=== PATIENT | female | born 1940 | race Caucasian/White ===

== ENCOUNTER → 2017-01-13 | Outpatient (CLI) | payer MEDICARE, BC, OTHER ==
[~2017-01-13] MED LIST: AMIT150T PO; HYDR25TAB PO; HYDR50TAB PO; LIDOCAINE 2% INJ 100 MG/5 ML SDV (FOR ANES.) As Ordered ONE; NABU500T PO; OMEP20CA3 PO; PERC5TAB12 PO; POTA10TA16 PO; PROPOFOL 500 MG/50 ML VIAL As Ordered ONE; VENL150C43 PO; WOME1TAB3 PO
[2017-01-13 11:20] LABS: MEAN CORPUSCULAR HEMOGLOBIN 33.2 pg (27.0-33.0); MEAN CORPUSCULAR HGB CONC 35.9 g/dl (32.0-36.5); MEAN CORPUSCULAR VOLUME 92.5 fl (80.0-96.0); RED CELL DISTRIBUTION WIDTH 11.9 % (11.5-14.5); WHITE BLOOD COUNT 4.6 K/mm3 (4.0-10.0)
[2017-01-13 11:36] LABS: INR 0.99
[2017-01-13 12:09] LABS: ALBUMIN 3.9 GM/DL (3.2-5.2); ALBUMIN/GLOBULIN RATIO 1.44 (1.00-1.93); ALKALINE PHOSPHATASE 78 U/L (45-117); ALT/SGPT 18 U/L (12-78); ANION GAP 7 MEQ/L (8-16); AST/SGOT 15 U/L (15-37); BILIRUBIN,TOTAL 0.4 MG/DL (0.2-1.0); BLOOD UREA NITROGEN 13 MG/DL (7-18); CALCIUM LEVEL 9.1 MG/DL (8.8-10.2); CARBON DIOXIDE LEVEL 30 MEQ/L (21-32); CHLORIDE LEVEL 107 MEQ/L (98-107); GLOMERULAR FILTRATION RATE > 60.0 (>39); GLUCOSE, FASTING 115 MG/DL (83-110); POTASSIUM SERUM 3.5 MEQ/L (3.5-5.1); SODIUM LEVEL 144 MEQ/L (136-145); TOTAL PROTEIN 6.6 GM/DL (6.4-8.2)
--- NOTE | 2017-01-13 12:38 | REP ---
CHEST X-RAY: Two views. HISTORY: Gastroesophageal reflux disease. Comparison chest x-ray June 23, 2012. FINDINGS: The lungs are well inflated and clear. The pleural angles are sharp. Heart size is normal. There is a zone of linear fibrosis overlying the heart on the lateral radiograph unchanged. The aorta is calcific and slightly tortuous. There is sclerosis and some flattening of the humeral head on the right side consistent with osteoarthritis. IMPRESSION: No active disease. Signed by Shimon Branham MD 01/13/2017 04:29 P
--- NOTE | 2017-01-13 21:44 | ECGEPIP ---
Stationary ECG Study [facility] Test Date: 2017-01-13 Pat Name: ARCHIE MARCUS Department: Room: - Gender: F Insulation Professional: [facility] : 1940 Requested By: Rich Kwon Order Number: [id number] Reading MD: Jese Sevilla Measurements Intervals [place] Rate: 57 P: 8 [place]: 172 QRS: -37 QRSD: 108 T: 24 QT: 453 QTc: 442 Interpretive Statements Sinus bradycardia Left axis deviation Nonspecific T wave abnormality Probable pulmonary disease Comparison tracing not on file Electronically Signed On 01-13-2017 21:44:38 EDT by Jese Sevilla
== END ==
LOC: M ADMPAT 10:03
PROVIDERS: ATTEND Orthopaedic Surgery
DX: Z01.818 Encounter for other preprocedural examination (principal); M19.011 Primary osteoarthritis, right shoulder; Z79.899 Other long term (current) drug therapy

== ENCOUNTER 2017-01-27 05:42 | Inpatient (IN) | payer MEDICARE, BC, OTHER ==
[2017-01-13 10:43] VITALS: BP 134/74
--- NOTE | 2017-01-21 11:54 | HPE ---
DATE OF ANTICIPATED ADMISSION: 01/27/2017 ATTENDING PHYSICIAN: Dr. Fuller CHIEF COMPLAINT: Right shoulder pain and stiffness. HISTORY: The patient is a pleasant 76-year-old female with progressively worsening right shoulder pain and stiffness. She has failed to improve with conservative measures. She has consented for an elective right total shoulder arthroplasty with Dr. Fuller. CHRONIC MEDICAL CONDITIONS: 1. Hypertension. 2. Gastroesophageal reflux disease (GERD). 3. Anxiety. CURRENT MEDICATIONS: - Mobic 7.5 mg daily - Effexor extended release 150 mg daily - hydrochlorothiazide 50 mg daily - omeprazole 20 mg daily - KlorCon 10 mEq daily PAST SURGICAL HISTORY: 1. Partial hysterectomy. 2. Foot and thumb surgery. SOCIAL HISTORY: The patient is a former smoker, quit in 1999. She denies alcohol use. The patient is and lives with . REVIEW OF SYSTEMS: The patient denies fevers, chills, nausea, vomiting or diarrhea. She denies chest pain, shortness of breath, cough, headaches or abdominal pain. She continues to have right shoulder pain with activities of daily living. PHYSICAL EXAMINATION: GENERAL: Patient is a well-nourished, well-developed female in no apparent distress. VITAL SIGNS: Blood pressure 118/72, heart rate 68, respirations 16, temperature 97.2, height 5 feet 7 inches, weight 169 pounds. NECK: Supple without lymphadenopathy. HEART: Regular rate and rhythm. LUNGS: Clear to auscultation bilaterally. ABDOMEN: Soft, nontender to palpation. Bowel sounds are present. MUSCULOSKELETAL: Right shoulder revealed no gross abnormalities. Her skin is intact. Shoulder is quite irritable on examination. Range of motion is limited secondary to pain. Strength seems normal. Radial pulse is palpable. Capillary refill is brisk. Sensation is intact. LABORATORY DATA: Chest x-ray with no active disease. EKG sinus bradycardia. Left axis deviation. Nonspecific T-wave abnormalities. Probably pulmonary disease. Urinalysis negative with urine culture revealing no growth of clinical significance. Complete blood count: WBC is 4.6, RBC is 4.22, hemoglobin 14, hematocrit 39, platelets 176, ESR 10, prothrombin time 13.2, INR 0.99. Comprehensive metabolic profile, fasting glucose elevated at 115, BUN 13, creatinine for GFR 0.60, GFR greater than 60, sodium 144, potassium 3.5, chloride 107, carbon dioxide 30, anion decreased at 7, calcium 9.1, AST 15, ALT 18, alkaline phosphatase 78, total bilirubin 0.4, total protein 6.6, albumin 3.9, albumin-globulin ratio 1.44. Nasal and sinus culture positive for Staphylococcus aureus. IMPRESSION: 1. Right shoulder osteoarthritis with x-ray notable for end-stage degenerative changes. 2. Nasal and sinus culture positive for Staphylococcus aureus. PLAN: The patient has consented for an elective right total shoulder arthroplasty with Dr. Fuller. Patient treated per protocol with Hibiclens and Bactroban for her positive nasal and sinus culture. [facility]
[2017-01-27] VITALS (10 sets, daily range): BP systolic 111–139; BP diastolic 58–71; O2SAT 96
[~2017-01-27] VITALS: Ht 170.2 cm; Wt 77.6 kg
[~2017-01-27 05:42] MED LIST changes: +EPINEPHrine INJ 1 MG/ML 1ML AMP As Ordered ONE; -HYDR50TAB PO; -LIDOCAINE 2% INJ 100 MG/5 ML SDV (FOR ANES.) As Ordered ONE; -PROPOFOL 500 MG/50 ML VIAL As Ordered ONE; +ceFAZolin 1GM INJ (J0690) As Ordered ONE
[2017-01-27] MEDS ORDERED: LR 1,000 ML IV SCH ×2 (05:45→11:45)
[2017-01-27] MEDS ORDERED: ACETAMINOPHEN 500 MG TAB PO ONE (06:00)
[2017-01-27] MEDS ORDERED: HYDR50TAB PO (06:26)
[2017-01-27] MEDS ORDERED: fentaNYL 100 MCG/2 ML INJECTION (J3010) As Ordered ONE ×2 (07:14→08:17)
[2017-01-27] MEDS ORDERED: MIDAZOLAM INJ 2 MG/2 ML VIAL (J2250) As Ordered ONE ×2 (07:14→08:17)
[2017-01-27] MEDS ORDERED: PROPOFOL 200 MG/20 ML VIAL As Ordered ONE (08:17)
[2017-01-27] MEDS ORDERED: LIDOCAINE 2% INJ 100 MG/5 ML SDV (FOR ANES.) As Ordered ONE (08:18)
[2017-01-27] MEDS ORDERED: ROCURONIUM BROMIDE 50 MG/5 ML VIAL/SYRINGE As Ordered ONE (08:18)
[2017-01-27] MEDS ORDERED: ONDANSETRON 4MG/2ML VIAL (J2405) As Ordered ONE (08:18)
[2017-01-27] MEDS ORDERED: dexameTHASONE 4 MG/ML 1ML VIAL (J1100) As Ordered ONE (08:18)
[2017-01-27] MEDS ORDERED: HYDROmorphone HCL 2 MG/ML 1ML VIAL (J1170) As Ordered ONE (08:19)
[2017-01-27] MEDS ORDERED: MORPHINE 1MG/ML IN 0.9% NACL 100ML IV BAG As Ordered ONE (10:32)
[2017-01-27] MEDS ORDERED: FLEET ENEMA PR PRN (11:45)
[2017-01-27] MEDS ORDERED: fentaNYL 100 MCG/2 ML INJECTION (J3010) IV PRN (11:45)
[2017-01-27] MEDS ORDERED: NALOXONE INJ 0.4 MG/1 ML VIAL (J2310) IV PRN (11:45)
[2017-01-27] MEDS ORDERED: NALBUPHINE HCL 10 MG/ML AMP (J2300) IV PRN (11:45)
[2017-01-27] MEDS ORDERED: EPIDURAL/PCA KEYS XX PRN (11:45)
[2017-01-27] MEDS ORDERED: MORPHINE 1MG/ML IN 0.9% NACL 100ML IV BAG IV PRN (11:45)
[2017-01-27] MEDS ORDERED: diphenhydrAMINE INJ 50MG/ML VIAL (J1200) IV PRN (11:45)
[2017-01-27] MEDS ORDERED: ONDANSETRON 4MG/2ML VIAL (J2405) IV PRN ×2 (11:45)
[2017-01-27] MEDS ORDERED: ACETAMINOPHEN TAB 650MG DOSE (2X325MG) PO PRN (11:45)
[2017-01-27] MEDS: LR 1,000 ML IV SCH (11:45)
--- NOTE | 2017-01-27 12:38 | RO ---
DATE OF PROCEDURE: 01/27/2017 PREOPERATIVE DIAGNOSIS: Right shoulder osteoarthritis. POSTOPERATIVE DIAGNOSIS: Right shoulder osteoarthritis. PROCEDURE: Right total shoulder arthroplasty using a size 44 glenoid with size 10 global unit stem with a 44 +18 eccentric head and neck length. DePuy stem with an 18x48 head 135 degrees. SURGEON: Dr. Rich Fuller MOLD HOISTER: Dr. Dr. Jimmie Sharma and MASOUD Ruiz. ANESTHESIA: General endotracheal tube anesthesia with postoperative interscalene nerve block. COMPLICATIONS: None. FINDINGS: She had significant degenerative change of the proximal humerus and the glenoid. No rotator cuff tear identified. DESCRIPTION OF PROCEDURE: Antibiotics were given intravenously preoperatively and then a successful general endotracheal tube anesthetic was established. Then, she was placed in the supine position with a bump under the scapula at the edge of the bed. She was well protected from fall and then her right upper extremity was carefully prepped and draped in the usual sterile fashion after appropriate time-out. A longitudinal incision was made for a deltopectoral approach to the shoulder. Bovie cautery used to coagulate crossing vessels. The deltopectoral interval identified. The cephalic vein was identified and reflected medially. Perforators to the deltoid were coagulated with Bovie. The clavipectoral fascia was incised. The three sister's blood vessels were identified and clamped and Bovie cauterized. The upper border of the pectoralis was released and the biceps sheath was entered and the biceps was transected and tenodesed to the pectoralis. Proximally the biceps sheath was opened through the rotator interval into the shoulder joint and then excised at the glenoid attachment site. I then used a Yolanda clamp to get underneath the subscapularis and made sure that the bicipital groove was well exposed and used a saw to perform a lesser tuberosity osteotomy. Then, used an osteotome to complete the osteotomy and reflect the subscapularis medially. Tag and sutures were applied to the subscapularis and then we carefully externally rotated and dislocated the proximal humerus and releasing the capsule from inferior neck and removing the osteophytes. I used a template to guide our varus, valgus angle. Used the Bovie cautery to make the juvenal and estimated our version and performed a proximal humeral osteotomy. A metal cap was then placed and then we began exposure of the glenoid. I first placed a Bankart retractor anteriorly and reflected the humerus posteriorly and excised the labrum anterior and superiorly and excised a remnant of the biceps insertion as well as the posterior labrum, and then very carefully on the inferior part of the glenohumeral joint we were able to finger dissect and bluntly dissect down in the axillary fold and identified the axillary nerve and protect that at all times, and I used a small blunt Hohmann underneath the inferior capsule and then certain that we were safely protecting the axillary nerve, the inferior capsule was released off the inferior aspect of the glenoid and the humerus all the way to the triceps insertion, and then I excised some of the capsule anteriorly such that the subscapularis had excellent mobilization, and eventually we were able to get adequate exposure to the glenoid. I used the template and size that a 44 would be the right size for the glenoid. I used the guide to center the drill hole in the middle of the glenoid and then used the drill. I then inserted the hole guide and drilled posteriorly inferiorly, placed the peg and then drilled the remaining two holes and then the trial fit very nicely. Prior to this, I did place the bulk sugar handler and reamed the face of the glenoid with the reamer back to the subchondral bone. I then irrigated copiously the shoulder joint at this point and on the back table I used some of the reamings to place into the fins of the 44 glenoid component. The cement was mixed and placed into a Latosha syringe in a liquid form and then the three drill holes were filled with the cement and compacted by finger dissection. The glenoid was then seated and it fit nicely. We impacted it to make sure it was seated properly, and then we exposed the proximal humerus. We revised our version cup just a little bit and then placed the starter reamer down the center of the canal just adjacent to the bicipital groove and reamed up to a size 10. The brosteotome was then introduced and I made sure the version was set appropriately using the 30 degree hole with the pablo to be sure it aligned with the forearm. We then trial reduced with a 44 +18, which matched the size of the proximal humeral osteotomy. This fit very nicely. She had good spring back with about 50% subluxation posteriorly and good range of motion eversion appeared appropriate. Thus, I was quite satisfied that this was proper size component to use, and then we removed the trial and then placed three drill holes through the bicipital groove and placed a #5 Ethibond for repair of subscapularis. We then placed the real stem after copiously irrigating out the humeral canal. I then placed the Eccentric head such that it was pointed superiorly. Prior to placement of the head, I then placed the sutures around the humeral stem and then passed the sutures behind the lesser tuberosity osteotomy and the lesser tuberosity osteotomy fit beautifully right underneath the anterior lip of the humeral head back in its anatomic position. I secured the rotator interval retention suture that had been previously placed to set the position and then tied the three lesser tuberosity #5 Ethibond sutures to provide good anatomic repair of the subscapularis. Copious irrigation was provided into the glenoid humeral joint prior to closure of the subscapularis. We irrigated again and then closed the deep subdermal tissues with interrupted #2-0 PDS sutures. The skin was closed with sidra. She was placed in a sling after dry sterile bulky dressing was applied, then transferred to the recovery room in stable condition. There were no intraoperative complications. Dr. Jimmie Webb were critical to the success of this difficult surgery by helping with appropriate manipulation of the arm, help with appropriate soft tissue retraction such that I could the operation smoothly and efficiently. Mr. Webb helped close the wound, help to prepare the patient otherwise.
[2017-01-27] MEDS ORDERED: ROPIvacaine 0.5% 30 ML INJECTION (J2795) ONE (13:08)
[2017-01-27] MEDS ORDERED: dexameTHASONE 10 MG/1 ML VIAL PRES.FREE (J1100) ONE (13:08)
[2017-01-28] MEDS: LR 1,000 ML IV SCH (00:15)
[2017-01-28 02:00] VITALS: BP 102/52
[2017-01-28 06:00] VITALS: BP 114/57
[2017-01-28] MEDS ORDERED: PERCOCET 5MG/325MG TAB PO PRN ×2 (06:30)
[2017-01-28] MEDS ORDERED: ONDANSETRON 4 MG TAB (S0181) PO PRN (06:30)
[2017-01-28 07:02] LABS: MEAN CORPUSCULAR HEMOGLOBIN 31.9 pg (27.0-33.0); MEAN CORPUSCULAR HGB CONC 33.7 g/dl (32.0-36.5); MEAN CORPUSCULAR VOLUME 94.5 fl (80.0-96.0); RED CELL DISTRIBUTION WIDTH 11.7 % (11.5-14.5); WHITE BLOOD COUNT 10.4 10^3/uL (4.0-10.0)
[2017-01-28 07:15] LABS: INR 0.94
[2017-01-28 07:39] LABS: ANION GAP 6 MEQ/L (8-16); BLOOD UREA NITROGEN 14 MG/DL (7-18); CALCIUM LEVEL 8.7 MG/DL (8.8-10.2); CARBON DIOXIDE LEVEL 31 MEQ/L (21-32); CHLORIDE LEVEL 106 MEQ/L (98-107); CREATININE FOR GFR 0.58 MG/DL (0.55-1.02); GLOMERULAR FILTRATION RATE > 60.0 (>39); GLUCOSE, FASTING 110 MG/DL (83-110); SODIUM LEVEL 143 MEQ/L (136-145)
[2017-01-28] MEDS ORDERED: PERC5TAB12 PO (08:03)
[2017-01-28] MEDS ORDERED: MIRALAX *UNIT DOSE* 17GM PACKET PO SCH (09:00)
--- NOTE | 2017-01-29 09:28 | DSES ---
DATE OF ADMISSION: 01/27/2017 DATE OF DISCHARGE: 01/28/2017 HISTORY OF PRESENT ILLNESS: This was a pleasant female with continuing symptomatic right shoulder osteoarthritis. She underwent a right total shoulder arthroplasty per Dr. Doyle Fuller. Medically she was optimized and x-rays were consistent with advanced osteoarthritis. OPERATION PERFORMED: Right shoulder total arthroplasty. HOSPITAL COURSE: The patient uneventfully underwent a right shoulder total arthroplasty under general anesthesia with a postoperative interscalene nerve block. She was returned to recovery comfortable with sling applied. Diet is regular. Percocet as needed for pain. Postoperative instructions includes contacting orthopedics with increased pain, redness, bleeding, drainage, fever greater than 101, numbness and tingling in the upper extremity, or any further concerns. Otherwise, will see Mrs. Christensen for wound check and staple removal, which will be 10-14 days postoperative. She will be non-weightbearing about the right upper extremity and just gentle elbow range of motion and pendulum exercises. [facility]
== END 2017-01-28 09:55 | disposition home or self-care (01) | DRG 483 ==
LOC: M OR 05:42 → M MS5PR 12:05
PROVIDERS: ADMIT Orthopaedic Surgery; ATTEND Orthopaedic Surgery
PROC: 0RRJ0JZ Replacement of Right Shoulder Joint with Synthetic Substitute, Open Approach (ICD-10-PCS; principal; 2017-01-27 07:30)
DX: M19.011 Primary osteoarthritis, right shoulder (principal); I10 Essential (primary) hypertension; K21.9 Gastro-esophageal reflux disease without esophagitis; F41.9 Anxiety disorder, unspecified; Z79.899 Other long term (current) drug therapy; Z90.711 Acquired absence of uterus with remaining cervical stump; Z87.891 Personal history of nicotine dependence

== ENCOUNTER → 2017-06-18 | Outpatient (CLI) | payer MEDICARE, BC, OTHER ==
[2017-06-18 11:20] LABS: ANION GAP 5 MEQ/L (8-16); BLOOD UREA NITROGEN 17 MG/DL (7-18); CALCIUM LEVEL 9.2 MG/DL (8.8-10.2); CARBON DIOXIDE LEVEL 30 MEQ/L (21-32); CHLORIDE LEVEL 106 MEQ/L (98-107); GLOMERULAR FILTRATION RATE > 60.0 (>39); GLUCOSE, FASTING 92 MG/DL (70-100); SODIUM LEVEL 141 MEQ/L (136-145)
== END ==
LOC: M LAB 10:27
DX: Z01.812 Encounter for preprocedural laboratory examination (principal); M23.322 Other meniscus derangements, posterior horn of medial meniscus, left knee
CPT/HCPCS: 80048

== ENCOUNTER → 2017-09-25 | Outpatient (CLI) | payer MEDICARE, BC | LOC: M WHC 10:28 | DX: Z12.31 Encounter for screening mammogram for malignant neoplasm of breast (principal) | CPT/HCPCS: 77067 ==

== ENCOUNTER 2018-07-17 08:42 | Inpatient (IN) | payer MEDICARE, BC, OTHER ==
[~2018-07-17] VITALS: Ht 170.2 cm; Wt 85.6 kg
[~2018-07-17 08:42] MED LIST changes: -EPINEPHrine INJ 1 MG/ML 1ML AMP As Ordered ONE; +HYDR50TAB PO; +NABU-126 PO; -NABU500T PO; -ceFAZolin 1GM INJ (J0690) As Ordered ONE
[2018-07-17 09:16] LABS: ABG BASE EXCESS 3.6 (-2.0-2.0); ABG HCO3 28.5 MEQ/L (22.0-26.0); ABG O2 SATURATION 92.4 % (95.0-99.0); ABG PARTIAL PRESSURE O2 67.9 mmHg (75.0-100.0); ABG STANDARD HCO3 27.6 MEQ/L (22.0-26.0); ABG TOTAL CO2 29.9 MEQ/L (23.0-31.0)
[2018-07-17 09:23] LABS: BASO % 0.5 % (0.0-1.0); EOS # 0.2 10^3/uL (0.0-0.50); EOS % 5.3 % (0.0-3.0); HEMATOCRIT 33.1 % (36.0-47.0); HEMOGLOBIN 10.4 g/dl (12.0-15.5); LYMPH % 24.1 % (24.0-44.0); MEAN CORPUSCULAR HEMOGLOBIN 31.9 pg (27.0-33.0); MEAN CORPUSCULAR HGB CONC 31.4 g/dl (32.0-36.5); MEAN CORPUSCULAR VOLUME 101.5 fl (80.0-96.0); MONO # 0.4 10^3/uL (0.0-0.8); MONO % 9.3 % (0.0-5.0); NEUTROPHILS # 2.5 10^3/uL (1.8-7.7); NEUTROPHILS % 60.6 % (36.0-66.0); PLATELET COUNT, AUTOMATED 239 10^3/uL (150-450); RED BLOOD COUNT 3.26 10^6/uL (4.00-5.40); WHITE BLOOD COUNT 4.2 10^3/uL (4.0-10.0)
--- NOTE | 2018-07-17 09:37 | REP ---
Chest x-ray: Two views. History: Chest pain Comparison study: January 13, 2017. Findings: EKG monitoring electrodes overlie the chest along with oxygen delivery tubing. The lungs are symmetrically aerated and clear. Pleural angles are sharp. Heart size is normal. The aorta is calcific. Pulmonary vasculature is not increased. No acute bony abnormalities seen. In the interval since the prior exam, a right shoulder replacement has been performed. Impression: No active disease. Electronically Signed by Shimon Branham MD 07/17/2018 09:27 A
[2018-07-17 09:48] LABS: ALBUMIN 3.4 GM/DL (3.2-5.2); ALT/SGPT 23 U/L (12-78); BILIRUBIN,DIRECT < 0.1 MG/DL (0.0-0.2); BILIRUBIN,TOTAL 0.4 MG/DL (0.2-1.0); BLOOD UREA NITROGEN 14 MG/DL (7-18); CALCIUM LEVEL 8.7 MG/DL (8.8-10.2); CARBON DIOXIDE LEVEL 27 MEQ/L (21-32); CHLORIDE LEVEL 108 MEQ/L (98-107); CPK CREATINE PHOSPHOKINASE 98 U/L (26-192); CREATININE FOR GFR 0.69 MG/DL (0.55-1.30); GLOMERULAR FILTRATION RATE > 60.0 (>39); GLUCOSE, FASTING 103 MG/DL (70-100); MB/CK RELATIVE INDEX 2.24 (< OR =4); NT-PRO BNP 543 PG/ML (<450); POTASSIUM SERUM 3.9 MEQ/L (3.5-5.1); SODIUM LEVEL 144 MEQ/L (136-145); TOTAL PROTEIN 6.3 GM/DL (6.4-8.2); TROPONIN I < 0.02 NG/ML (< 0.10)
[2018-07-17] MEDS ORDERED: ISOVUE-370 76% 125ML VIAL (Q9967 PER ML) As Ordered ONE (10:08)
--- NOTE | 2018-07-17 10:47 | REP ---
CT PULMONARY ANGIOGRAM: With IV contrast. HISTORY: Shortness of breath. Question pulmonary embolus. Comparison is made with today's chest x-ray. CONTRAST DOSE: 75 mL of Isovue [address] TECHNIQUE: Helical scanning is acquired and overlapping 1.5 mm and contiguous 3 mm axial images are reformatted. In addition, maximum intensity projection and multiplanar re-formation images are generated in sagittal and coronal imaging projections. CT PULMONARY ANGIOGRAPHIC FINDINGS: There is good opacification of the pulmonary arterial tree. There is no CT evidence of pulmonary embolism. Thoracic aorta enhances homogeneously and is normal in course and caliber. No aneurysm or dissection is seen. There are scattered areas of ground-glass opacity in the pulmonary parenchyma consistent with some early pulmonary edema. There are scattered mediastinal lymph nodes. These include an anterior mediastinal lymph node measuring 1.2 x 1.0 cm. No pleural or pericardial effusion is seen. No adrenal lesion is observed. There are several cysts in the left kidney the largest of which measures 8.1 cm in greatest diameter. There is mild fullness of the intrarenal collecting systems bilaterally. The spleen is at the upper range of normal in size measuring 13 cm. IMPRESSION: No CT evidence of pulmonary embolus. Scattered areas of ground-glass opacity in the lung parenchyma may reflect early pulmonary edema. There are a few normal-sized mediastinal lymph nodes. Borderline spleen size. Left renal cysts. Mild fullness of the intrarenal collecting systems of both kidneys. Electronically Signed by Shimon Branham MD 07/17/2018 02:07 P
[2018-07-17] MEDS ORDERED: FUROSEMIDE 100 MG/10 ML VIAL (J1940) IV ONE (11:00)
[2018-07-17] MEDS ORDERED: GABA600T4 PO (11:27)
[2018-07-17] MEDS ORDERED: REST0.05 OU (11:27)
[2018-07-17] MEDS ORDERED: NAPR-885 PO (11:27)
[2018-07-17] MEDS ORDERED: HYDR-3713 PO (11:27)
[2018-07-17] MEDS ORDERED: FURO20TA2 PO (11:27)
[2018-07-17] MEDS ORDERED: FLAX10002 PO (11:27)
[2018-07-17] MEDS ORDERED: POTASSIUM CHLORIDE 10 MEQ SR TABLET PO ONE (12:30)
[2018-07-17] MEDS ORDERED: ACETAMINOPHEN TAB 650MG DOSE (2X325MG) PO PRN (12:30)
[2018-07-17] MEDS ORDERED: ONDANSETRON 4MG/2ML VIAL (J2405) IV PRN (12:30)
[2018-07-17 13:33] LABS: CPK CREATINE PHOSPHOKINASE 100 U/L (26-192); TROPONIN I < 0.02 NG/ML (< 0.10)
[2018-07-17] MEDS: PERCOCET 5MG/325MG TAB PO PRN ×2 (13:51→20:30)
--- NOTE | 2018-07-17 13:52 | HPEPDOC ---
General Date of Admission Jul 17, 2018 at 12:18 Chief Complaint The patient is a 78-year-old female admitted with a reason for visit of Heart F ailure. History of Present Illness 78-year-old female with past medical history of hypertension, GERD, anxiety, and chronic back pain presents to the ER with a chief complaint of worsening shortness of breath, and lower extremity edema. The patient states that she had a lumbar spinal fusion surgery done at [facility] in [place] on June 23. Following the procedure, the patient states that she has been gaining fluid in her legs, and this culminated today when she felt short of breath. The patient denies any history of heart disease. She also denied any fev ers, chills, chest pain, palpitations, abdominal pain, sick contacts, recent travel, or any nausea/vomiting/diarrhea. She reports that she saw her primary care physician and was prescribed a diuretic which helped some but not enough to get rid of the fluid in her lower extremities. In the ER, the patient was noted to be in decompensated heart failure with 3+ pitting edema in the lower extremities. A CT angiogram of the chest also revealed some pulmonary edema. The patient will be admitted to the hospitalist service for further evaluation and management. Home Medications Scheduled (Womens Multivitamin) 1 Tab Tab, 1 TAB PO DAILY, (Reported) (Restasis) 0.05 % Emu, 1 DROP OU BID, (Reported) (Flax Seed Oil 1000 mg) 1 Cap Cap, 1 CAP PO DAILY, (Reported) Furosemide (Furosemide) 20 Mg Tab, 20 MG PO DAILY, (Reported) Gabapentin (Gabapentin) 600 Mg Tab, 600 MG PO TID, (Reported) Hydrochlorothiazide (Hydrochlorothiazide) 50 Mg Tab, 50 MG PO DAILY, (Reported) Naproxen (Naproxen) 500 Mg Tab, 500 MG PO Q12H, (Reported) Omeprazole (Omeprazole) 20 Mg Cap, 20 MG PO DAILY, (Reported) Potassium Chloride (Potassium Chloride ER) 10 Meq Tab, 10 MEQ PO BID, (Reported) Venlafaxine Hydrochloride (Venlafaxine HCl ER) 150 Mg Cap, 150 MG PO DAILY, (Reported) Scheduled PRN Acetaminophen/Hydrocodone (Hydrocodone/Acetaminophen 5-325 mg) 1 Tab Tab, 1 TAB PO Q6H PRN for PAIN, (Reported) MAY TAKE ONE TO TWO TABS PRN Allergies Coded Allergies: No Known Allergies (Unverified , 09/15/13) Past Medical History Medical History As noted in HPI Surgical History Hx of Shoulder surgery, thumb surgery, foot surgery Social History * Smoker: Denies Alcohol: Denies Drugs: denies Review of Systems Other systems 10 point review of systems negative unless otherwise specified in HPI. Physical Examination General Exam: Positive: Alert, Cooperative, No Acute Distress ENT Exam: Positive: Atraumatic, Mucous membr. moist/pink Chest Exam: Positive: Diminished Heart Exam: Positive: Rate Normal, Normal S1, Normal S2 Telemetry: Positive: Sinus Abdomen Exam: Positive: Soft; Negative: Tenderness Extremity Exam: Positive: Other (3+ pitting edema reach the thighs bilaterally); Negative: Tenderness Psych Exam: Positive: Oriented x 3 Vital Signs Vital Signs Date Time Temp Pulse Resp B/P (MAP) Pulse Ox O2 Delivery O2 Flow Rate FiO2 07/17/18 10:33 150/65 (93) 07/17/18 10:12 76 20 94 Nasal Cannula 2.0 07/17/18 09:00 96 07/17/18 08:42 95.1 Laboratory Data Labs 24H Laboratory Tests 2 07/17/18 08:57: Immature Granulocyte % (Auto) 0.2, White Blood Count 4.2, Red Blood Count 3.26L, Hemoglobin 10.4L, Hematocrit 33.1L, Mean Corpuscular Volume 101.5H, Mean Corpuscular Hemoglobin 31.9, Mean Corpuscular Hemoglobin Concent 31.4L, Red Cell Distribution Width 13.7, Platelet Count 239, Neutrophils (%) (Auto) 60.6, Lymphocytes (%) (Auto) 24.1, Monocytes (%) (Auto) 9.3H, Eosinophils (%) (Auto) 5.3H, Basophils (%) (Auto) 0.5, Neutrophils # (Auto) 2.5, Lymphocytes # (Auto) 1.0L, Monocytes # (Auto) 0.4, Eosinophils # (Auto) 0.2, Basophils # (Auto) 0.0, Nucleated Red Blood Cells % (auto) 0.0, Anion Gap 9, Glomerular Filtration Rate > 60.0, Calcium Level 8.7L, Aspartate Amino Transf (AST/SGOT) 21, Alanine Aminotransferase (ALT/SGPT) 23, Alkaline Phosphatase 126H, Total Bilirubin 0.4, Direct Bilirubin < 0.1, Total Creatine Kinase 98, Creatine Kinase MB 2.0, Creatine Kinase MB Relative Index 2.24, Troponin I < 0.02, OT-Ucg-H-Type Na triuretic Peptide 543H, Total Protein 6.3L, Albumin 3.4, Albumin/Globulin Ratio 1.17 07/17/18 09:04: Blood Gas Bicarbonate Standard 27.6H, Arterial Blood pH 7.420, Arterial Blood Partial Pressure CO2 45.0, Arterial Blood Partial Pressure O2 67.9L, Arterial Blood Total CO2 29.9, Arterial Blood HCO3 28.5H, Arterial Blood Base Excess 3.6H, Arterial Blood Oxygen Saturation 92.4L 07/17/18 12:38: Total Creatine Kinase 100, Creatine Kinase MB 2.0, Creatine Kinase MB Relative Index 2.10, Troponin I < 0.02 CBC/BMP Laboratory Tests 07/17/18 08:57 Red Blood Count 3.26 L, Mean Corpuscular Volume 101.5 H, Mean Corpuscular Hemoglobin 31.9, Mean Corpuscular Hemoglobin Concent 31.4 L, Red Cell Distribution Width 13.7, Neutrophils (%) (Auto) 60.6, Lymphocytes (%) (Auto) 24.1, Monocytes (%) (Auto) 9.3 H, Eosinophils (%) (Auto) 5.3 H, Basophils (%) (Auto) 0.5, Neutrophils # (Auto) 2.5, Lymphocytes # (Auto) 1.0 L, Monocytes # (Auto) 0.4, Eosinophils # (Auto) 0.2, Basophils # (Auto) 0.0 Plan / VTE VTE Prophylaxis Ordered?: Yes Plan Plan Decompensated CHF 3+ pitting edema in the lower extremities. CTA Chest notable for pulmonary edema. EKG with no acute findings, troponins negative 2 in the ER--we will continue to serially monitor 2D ECHO, U/S Legs ordered IV Lasix ordered Daily Weights Strict I/O's 2gm low sodium diet, Fluid Restriction We will cont to monitor the patient's volume status GERD Continue omeprazole Anxiety Continue Effexor Neuropathy Continue gabapentin Hx of Chronic Back Pain/Spinal Stenosis, s/p Lumbar Spinal Fusion PT ordered for functional optimization DVT Prophylaxis Heparin KVNG INGRAM MD Jul 17, 2018 13:52
[2018-07-17 16:00] VITALS: BP 123/75
[2018-07-17] MEDS ORDERED: FUROSEMIDE 100 MG/10 ML VIAL (J1940) IV SCH (17:00)
[2018-07-17] MEDS: GABAPENTIN 300 MG CAP PO SCH ×2 (17:08→20:27)
[2018-07-17] MEDS: ENOXAPARIN 40 MG/0.4 ML SYRINGE (J1650) SC SCH (17:09)
[2018-07-17] MEDS: FUROSEMIDE 40 MG/4 ML VIAL (J1940) IV SCH (17:09)
[2018-07-17 20:11] LABS: APPEARANCE, URINE CLEAR (CLEAR); BACTERIA, URINE AUTO 1+ (NEGATIVE); BILIRUBIN, URINE AUTO NEGATIVE (NEGATIVE); BLOOD, URINE BLOOD NEGATIVE (NEGATIVE); COLOR, URINE COLORLESS (YELLOW); GLUCOSE, URINE (UA) AUTO NEGATIVE (NEGATIVE); KETONE, URINE AUTO NEGATIVE (NEGATIVE); LEUKOCYTE ESTERASE, URINE AUTO NEGATIVE (NEGATIVE); NITRITE, URINE AUTO NEGATIVE (NEGATIVE); PROTEIN, URINE AUTO NEGATIVE (NEGATIVE); RBC, URINE AUTO 0 /HPF (0-3); SPECIFIC GRAVITY URINE AUTO 1.008 (1.002-1.035); SQUAMOUS EPITHELIAL CELL UR AU 0 /HPF (0-6); UROBILINOGEN, URINE AUTO 0.2 mg/dL (0.0-2.0); WBC, URINE AUTO 0 /HPF (0-3)
[2018-07-17 20:54] LABS: CPK CREATINE PHOSPHOKINASE 71 U/L (26-192); MB/CK RELATIVE INDEX 1.69 (< OR =4); TROPONIN I < 0.02 NG/ML (< 0.10)
[2018-07-17 22:00] VITALS: BP 114/58
[2018-07-18] VITALS: BP 130/67
[2018-07-18 04:00] VITALS: BP 107/60
[2018-07-18] MEDS: PERCOCET 5MG/325MG TAB PO PRN ×3 (04:48→16:35)
[2018-07-18 05:08] LABS: HEMATOCRIT 33.6 % (36.0-47.0); HEMOGLOBIN 10.5 g/dl (12.0-15.5); MEAN CORPUSCULAR HEMOGLOBIN 31.1 pg (27.0-33.0); MEAN CORPUSCULAR HGB CONC 31.3 g/dl (32.0-36.5); MEAN CORPUSCULAR VOLUME 99.4 fl (80.0-96.0); PLATELET COUNT, AUTOMATED 261 10^3/uL (150-450); RED BLOOD COUNT 3.38 10^6/uL (4.00-5.40); WHITE BLOOD COUNT 4.3 10^3/uL (4.0-10.0)
[2018-07-18 05:28] LABS: BLOOD UREA NITROGEN 18 MG/DL (7-18); CALCIUM LEVEL 8.9 MG/DL (8.8-10.2); CARBON DIOXIDE LEVEL 31 MEQ/L (21-32); CHLORIDE LEVEL 103 MEQ/L (98-107); GLOMERULAR FILTRATION RATE > 60.0 (>39); GLUCOSE, FASTING 95 MG/DL (70-100); MAGNESIUM LEVEL 2.1 MG/DL (1.8-2.4); POTASSIUM SERUM 3.9 MEQ/L (3.5-5.1); SODIUM LEVEL 143 MEQ/L (136-145)
[2018-07-18 05:30] LABS: CK-MB VALUE MASS < 1.0 NG/ML (<3.6); CPK CREATINE PHOSPHOKINASE 61 U/L (26-192); MB/CK RELATIVE INDEX 1.64 (< OR =4); TROPONIN I < 0.02 NG/ML (< 0.10)
--- NOTE | 2018-07-18 07:02 | ECGEPIP ---
Stationary ECG Study [facility] - ED Test Date: 2018-07-17 Pat Name: ARCHIE MARCUS Department: Room: - Gender: F [employer]: [place] : 1940 Requested By: MARCIA Villanueva Order Number: [id number] Reading MD: Shelton Pantoja Measurements Intervals [place] Rate: 84 P: 15 [place]: 222 QRS: -28 QRSD: 81 T: 33 QT: 354 QTc: 421 Interpretive Statements SINUS RHYTHM WITH FIRST DEGREE AV BLOCK WITH OCCASIONAL ECTOPIC PREMATURE COMPLEXES INCOMPLETE RIGHT BUNDLE BRANCH BLOCK SIMILAR TO 01/03/17 Electronically Signed On 07-18-2018 7:01:54 EDT by Shelton Pantoja
[2018-07-18 08:00] VITALS: BP 135/78
[2018-07-18] MEDS: GABAPENTIN 300 MG CAP PO SCH ×3 (08:04→22:18)
[2018-07-18] MEDS: VENLAFAXINE **XR** 75MG CAPSULE PO SCH (08:04)
[2018-07-18] MEDS: OMEPRAZOLE 20 MG CAP PO SCH (08:04)
[2018-07-18] MEDS: ENOXAPARIN 40 MG/0.4 ML SYRINGE (J1650) SC SCH (08:05)
[2018-07-18] MEDS: FUROSEMIDE 40 MG/4 ML VIAL (J1940) IV SCH ×3 (08:05→22:18)
[2018-07-18] MEDS ORDERED: traMADol 50 MG TAB PO ONE (10:30)
[2018-07-18 12:00] VITALS: BP 134/70
--- NOTE | 2018-07-18 13:31 | ECHO ---
DATE OF PROCEDURE: 07/17/2018 AGE: 78 REFERRING PROVIDER: Dr. Raúl Grider PATIENT LOCATION: Room 3230 REASON FOR THE ECHOCARDIOGRAM: Heart failure, unspecified. 2D MEASUREMENTS: IVS: 1.1 cm LV: 5.0 cm LVPW: 1.0 cm LA: 3.3 cm Aorta: 3.0 cm IVC: 1.9 cm DOPPLER MEASUREMENTS: Peak velocity across the aortic valve: 1.1 m/s Peak velocity across the LVOT: 1.3 m/s Mitral E: 0.82, Mitral A: 0.9 with a ratio of 0.9 2D COMMENTS: 1. Normal left ventricular size, wall thickness and normal global left ventricular systolic function. The estimated left ventricular systolic ejection fraction is 65-70%. A sigmoid appearance of the basal ventricular septum was noted. 2. Normal left atrium. Normal right atrium and right ventricle. 3. The atrial septum appeared to be normal without evidence of defect or shunt. 4. Normal aortic root. 5. No pericardial effusion seen. 6. Moderately calcified aortic valve with normal leaflet excursion. Normal mitral valve, tricuspid valve and pulmonic valve. The proximal pulmonary artery branches appeared to be normal. 7. The inferior vena cava was normal in size. Central venous pressure is most likely normal. DOPPLER: It detects trace tricuspid regurgitation. Pulmonary artery systolic pressure was not calculated but most likely normal. Abnormal relaxation pattern was noted across the mitral valve leaflets, as well as the mitral valve annulus consistent with features of grade 1 left ventricular diastolic dysfunction. IMPRESSION: 1. Normal global left ventricular systolic function. There are features of left ventricular diastolic dysfunction manifested by abnormal relaxation. 2. Aortic valve sclerosis without stenosis or aortic regurgitation. 3. Trace tricuspid regurgitation. 4. A sigmoid appearance of the basal ventricular system was noted. Benign finding. 5. No significant valvular abnormality detected. [facility]
--- NOTE | 2018-07-18 15:49 | IPNPDOC ---
Subjective Date Seen The patient was seen on 07/18/18. Subjective Chief Complaint/HPI Patient seen and examined at the bedside. Reports that her respiratory status is improved. In addition, she notes that the swelling in her upper extremities has resolved. She also notes decrease in lower extremity swelling and increase in skin laxity. Objective Physical Examination General Exam: Positive: Alert, Cooperative, No Acute Distress ENT Exam: Positive: Atraumatic, Mucous membr. moist/pink Chest Exam: Positive: Clear to auscultation, Normal air movement Heart Exam: Positive: Rate Normal, Normal S1, Normal S2 Telemetry: Positive: Sinus Abdomen Exam: Positive: Soft; Negative: Tenderness Extremity Exam: Positive: Other (2+ pitting edema reach the thighs bilaterally); Negative: Tenderness Psych Exam: Positive: Oriented x 3 Assessment /Plan Plan/VTE VTE Prophylaxis Ordered?: Yes Plan Decompensated CHF CTA Chest notable for pulmonary edema. EKG with no acute findings, troponins negative 2 in the ER--we will continue to serially monitor 2D ECHO notable for Grade 1 DD, Preserved EF, U/S Legs negative for DVT Cont IV Lasix Daily Weights Strict I/O's 2gm low sodium diet, Fluid Restriction Patient reports improvement of volume status-->We will cont to monitor the patient's volume status GERD Continue omeprazole Anxiety Continue Effexor Neuropathy Continue gabapentin Hx of Chronic Back Pain/Spinal Stenosis, s/p Lumbar Spinal Fusion PT ordered for functional optimization DVT Prophylaxis Heparin SC Dispo--pending continued clinical improvement, volume optimization, and PT clearance. VS, I&O, 24H, Fishbone Vital Signs/I&O Vital Signs Date Time Temp Pulse Resp B/P (MAP) Pulse Ox O2 Delivery O2 Flow Rate FiO2 07/18/18 13:00 18 07/18/18 12:00 97.2 80 134/70 (91) 92 07/17/18 16:00 Nasal Cannula 07/17/18 10:12 2.0 07/17/18 09:00 96 I&O- Last 24 Hours up to 6 AM 07/18/18 06:00 Intake Total 560 ml Output Total 1350 ml Balance -790 ml Laboratory Data 24H LABS Laboratory Tests 2 07/17/18 19:48: Urine Appearance CLEAR, Urine Color COLORLESS, Urine pH 7.0, Urine Specific [place] 1.008, Urine Protein NEGATIVE, Urine Glucose (UA) NEGATIVE, Urine Ketone s NEGATIVE, Urine Urobilinogen 0.2, Urine Bilirubin NEGATIVE, Urine Leukocyte Esterase NEGATIVE, Urine Blood NEGATIVE, Urine Nitrite NEGATIVE, Urine WBC (Auto) 0, Urine RBC (Auto) 0, Urine Hyaline Casts (Auto) 0, Urine Bacteria (Auto) 1+H, Urine Squamous Epithelial Cells 0, Urine Sperm (Auto) 07/17/18 20:05: Total Creatine Kinase 71, Creatine Kinase MB 1.0, Creatine Kinase MB Relative Index 1.69, Troponin I < 0.02 07/18/18 04:24: Total Creatine Kinase 61, Creatine Kinase MB < 1.0, Creatine Kinase MB Relative Index 1.64, Troponin I < 0.02, Nucleated Red Blood Cells % (auto) 0.0, Anion Gap 9, Glomerular Filtration Rate > 60.0, Blood Urea Nitrogen 18, Creatinine 0.70, Sodium Level 143, Potassium Level 3.9, Chloride Level 103, Carbon Dioxide Level 31, Calcium Level 8.9, Magnesium Level 2.1 CBC/BMP Laboratory Tests 07/18/18 04:24 Red Blood Count 3.38 L, Mean Corpuscular Volume 99.4 H, Mean Corpuscular Hemoglobin 31.1, Mean Corpuscular Hemoglobin Concent 31.3 L, Red Cell Distribution Width 13.6, Calcium Level 8.9 KVNG SEALS MD Jul 18, 2018 15:49
[2018-07-18 16:00] VITALS: BP 132/80
[2018-07-18 20:00] VITALS: BP 132/75
[2018-07-19] VITALS: BP 126/68
[2018-07-19 04:00] VITALS: BP 120/85
[2018-07-19] MEDS: PERCOCET 5MG/325MG TAB PO PRN ×3 (04:25→22:20)
[2018-07-19] MEDS: FUROSEMIDE 40 MG/4 ML VIAL (J1940) IV SCH (06:00)
[2018-07-19 06:16] LABS: HEMATOCRIT 33.7 % (36.0-47.0); HEMOGLOBIN 10.5 g/dl (12.0-15.5); MEAN CORPUSCULAR HEMOGLOBIN 31.4 pg (27.0-33.0); MEAN CORPUSCULAR HGB CONC 31.2 g/dl (32.0-36.5); MEAN CORPUSCULAR VOLUME 100.9 fl (80.0-96.0); PLATELET COUNT, AUTOMATED 235 10^3/uL (150-450); RED BLOOD COUNT 3.34 10^6/uL (4.00-5.40); WHITE BLOOD COUNT 4.4 10^3/uL (4.0-10.0)
[2018-07-19 06:36] LABS: BLOOD UREA NITROGEN 27 MG/DL (7-18); CALCIUM LEVEL 8.8 MG/DL (8.8-10.2); CARBON DIOXIDE LEVEL 30 MEQ/L (21-32); CHLORIDE LEVEL 104 MEQ/L (98-107); CREATININE FOR GFR 0.85 MG/DL (0.55-1.30); GLOMERULAR FILTRATION RATE > 60.0 (>39); GLUCOSE, FASTING 100 MG/DL (70-100); POTASSIUM SERUM 2.9 MEQ/L (3.5-5.1); SODIUM LEVEL 143 MEQ/L (136-145)
[2018-07-19] MEDS ORDERED: POTASSIUM CHLORIDE 10 MEQ SR TABLET PO ONE ×3 (06:45→20:00)
[2018-07-19 08:00] VITALS: BP 124/82
[2018-07-19] MEDS: OMEPRAZOLE 20 MG CAP PO SCH (08:53)
[2018-07-19] MEDS: VENLAFAXINE **XR** 75MG CAPSULE PO SCH (08:53)
[2018-07-19] MEDS: GABAPENTIN 300 MG CAP PO SCH ×3 (08:53→20:29)
[2018-07-19] MEDS: ENOXAPARIN 40 MG/0.4 ML SYRINGE (J1650) SC SCH (08:54)
[2018-07-19 12:00] VITALS: BP 122/74
[2018-07-19 17:00] VITALS: BP 160/80
--- NOTE | 2018-07-19 17:28 | IPNPDOC ---
Subjective Date Seen The patient was seen on 07/19/18. Subjective Chief Complaint/HPI Patient seen and examined at the bedside. Reports that her volume status has significantly improved. According to daily weights, the patient's weight has decreased from 91 kg on admission to 86 kg today. She also reports that she is doing well with physical therapy. Otherwise, no acute overnight events noted. Objective Physical Examination General Exam: Positive: Alert, Cooperative, No Acute Distress ENT Exam: Positive: Atraumatic, Mucous membr. moist/pink Chest Exam: Positive: Clear to auscultation, Normal air movement Heart Exam: Positive: Rate Normal, Normal S1, Normal S2 Telemetry: Positive: Sinus Abdomen Exam: Positive: Soft; Negative: Tenderness Extremity Exam: Positive: Other (trace pitting edema in the lower extremities bilaterally); Negative: Tenderness Psych Exam: Positive: Oriented x 3 Assessment /Plan Plan/VTE VTE Prophylaxis Ordered?: Yes Plan Decompensated CHF CTA Chest notable for pulmonary edema. EKG with no acute findings, troponins negative here 2D ECHO notable for Grade 1 DD, Preserved EF, U/S Legs negative for DVT IV Lasix transitioned to PO Daily Weights Strict I/O's 2gm low sodium diet, Fluid Restriction Patient reports improvement of volume status, she has lost 5kg's of weight since admission-->We will cont to monitor the patient's volume status GERD Continue omeprazole Anxiety Continue Effexor Neuropathy Continue gabapentin Hx of Chronic Back Pain/Spinal Stenosis, s/p Lumbar Spinal Fusion PT ordered for functional optimization DVT Prophylaxis Heparin SC Dispo--pending continued clinical improvement, volume optimization. Anticipate D/C in 24-48hrs. VS, I&O, 24H, Fishbone Vital Signs/I&O Vital Signs Date Time Temp Pulse Resp B/P (MAP) Pulse Ox O2 Delivery O2 Flow Rate FiO2 07/19/18 17:00 97.7 80 18 160/80 (106) 98 07/17/18 16:00 Nasal Cannula 07/17/18 10:12 2.0 07/17/18 09:00 96 I&O- Last 24 Hours up to 6 AM 07/19/18 06:00 Intake Total 660 ml Output Total 2600 ml Balance -1940 ml Laboratory Data 24H LABS Laboratory Tests 2 07/19/18 05:03: Nucleated Red Blood Cells % (auto) 0.0, Anion Gap 9, Glomerular Filtration Rate > 60.0, Blood Urea Nitrogen 27H, Creatinine 0.85, Sodium Level 143, Potassium Level 2.9#*L, Chloride Level 104, Carbon Dioxide Level 30, Calcium Level 8.8, Magnesium Level 2.0 CBC/BMP Laboratory Tests 07/19/18 05:03 Red Blood Count 3.34 L, Mean Corpuscular Volume 100.9 H, Mean Corpuscular Hemoglobin 31.4, Mean Corpuscular Hemoglobin Concent 31.2 L, Red Cell Distribution Width 13.4, Calcium Level 8.8 KVNG SEALS MD Jul 19, 2018 17:28
[2018-07-19 22:00] VITALS: BP 146/78
[2018-07-20] MEDS: PERCOCET 5MG/325MG TAB PO PRN ×3 (02:19→10:15)
[2018-07-20 06:00] VITALS: BP 150/80
[2018-07-20] MEDS: GABAPENTIN 300 MG CAP PO SCH (06:15)
[2018-07-20 06:33] LABS: HEMATOCRIT 37.4 % (36.0-47.0); HEMOGLOBIN 11.6 g/dl (12.0-15.5); MEAN CORPUSCULAR HEMOGLOBIN 31.1 pg (27.0-33.0); MEAN CORPUSCULAR VOLUME 100.3 fl (80.0-96.0); PLATELET COUNT, AUTOMATED 256 10^3/uL (150-450); RED BLOOD COUNT 3.73 10^6/uL (4.00-5.40); WHITE BLOOD COUNT 4.6 10^3/uL (4.0-10.0)
[2018-07-20 07:01] LABS: BLOOD UREA NITROGEN 23 MG/DL (7-18); CALCIUM LEVEL 9.4 MG/DL (8.8-10.2); CARBON DIOXIDE LEVEL 27 MEQ/L (21-32); CHLORIDE LEVEL 110 MEQ/L (98-107); CREATININE FOR GFR 0.62 MG/DL (0.55-1.30); GLOMERULAR FILTRATION RATE > 60.0 (>39); GLUCOSE, FASTING 103 MG/DL (70-100); MAGNESIUM LEVEL 2.1 MG/DL (1.8-2.4); SODIUM LEVEL 143 MEQ/L (136-145)
--- NOTE | 2018-07-20 07:25 | REP ---
Duplex extremity venous ultrasound: Bilateral lower extremity nicolette History: It rule out DVT. Findings: The deep veins are anechoic and fully compressible from the groin to the popliteal fossa in the left and right lower extremity. Color flow imaging is homogeneous. Spectral Doppler interrogation demonstrates intact respiratory variation in flow and normal manual augmentation of flow. There is no evidence of deep vein thrombosis. Impression: Negative bilateral lower extremity duplex venous ultrasound. No evidence of deep vein thrombosis. Electronically Signed by Shimon Branham MD 07/17/2018 03:55 P
[2018-07-20] MEDS ORDERED: FURO20TA2 PO ×2 (08:28)
[2018-07-20] MEDS ORDERED: FUROSEMIDE 40 MG TAB PO SCH (09:00)
[2018-07-20] MEDS: OMEPRAZOLE 20 MG CAP PO SCH (09:27)
[2018-07-20] MEDS: VENLAFAXINE **XR** 75MG CAPSULE PO SCH (09:27)
[2018-07-20] MEDS: ENOXAPARIN 40 MG/0.4 ML SYRINGE (J1650) SC SCH (09:28)
--- NOTE | 2018-07-20 15:16 | DS.PDOC ---
Discharge Summary General Date of Admission Jul 17, 2018 at 12:18 Date of Discharge 07/20/18 Discharge Summary PROCEDURES PERFORMED DURING STAY: None. ADMITTING/DISCHARGE DIAGNOSES: Decompensated Diastolic CHF GERD Anxiety Neuropathy Hx of Chronic Back Pain/Spinal Stenosis, s/p Lumbar Spinal Fusion COMPLICATIONS/CHIEF COMPLAINT: Heart Failure. HISTORY OF PRESENT ILLNESS: . 78-year-old female with past medical history of hypertension, GERD, anxiety, and chronic back pain presents to the ER with a chief complaint of worsening shortness of breath, and lower extremity edema. The patient states that she had a lumbar spinal fusion surgery done at [facility] in [place] on June 23. Following the procedure, the patient states that she has been gaining fluid in her legs, and this culminated today when she felt short of breath. The patient denies any history of heart disease. She also denied any fevers, chills, chest pain, palpitations, abdominal pain, sick contacts, recent travel, or any nausea/vomiting/diarrhea. She reports that she saw her primary care physician and was prescribed a diuretic which helped some but not enough to get rid of the fluid in her lower extremities. In the ER, the patient was noted to be in decompensated heart failure with 3+ pitting edema in the lower extremities. A CT angiogram of the chest also revealed some pulmonary edema. The patient will be admitted to the hospitalist service for further evaluation and management. During hospitalization, the patient was started on IV diuretic therapy. The patient's volume status significantly improved thereafter. A 2-D echo was obtained and revealed diastolic dysfunction. At this time, the patient states that she is feeling much better and notes that her respiratory/volume status has returned back to baseline. She has been leared by physical therapy. I have increased the patient's Lasix dose to 40 mg daily. I discussed the need for the patient to adhere to a fluid restricted 2 g low sodium diet, and to obtain daily weights. Should the patient gain more than 2 pounds in a day, and/or note incr eased fluid retention in her lower extremities or difficulty breathing, the patient has been instructed to follow-up with her primary care physician for further titration of her medications and evaluation. Lastly, the patient has been advised to follow up with her primary care physician within 7 days. She is to return to the ER for any acute emergencies. DISCHARGE MEDICATIONS: Please see below. ALLERGIES: Please see below. PHYSICAL EXAMINATION ON DISCHARGE: VITAL SIGNS: Please see below. General Exam: Positive: Alert, Cooperative, No Acute Distress ENT Exam: Positive: Atraumatic, Mucous membr. moist/pink Chest Exam: Positive: Clear to auscultation, Normal air movement Heart Exam: Positive: Rate Normal, Normal S1, Normal S2 Telemetry: Positive: Sinus Abdomen Exam: Positive: Soft; Negative: Tenderness Extremity Exam: Positive: Other (trace pitting edema in the lower extremities bilaterally); Negative: Tenderness Psych Exam: Positive: Oriented x 3 LABORATORY DATA: Please see below. IMAGING: Chest x-ray: Two views. History: Chest pain Comparison study: January 13, 2017. Findings: EKG monitoring electrodes overlie the chest along with oxygen delivery tubing. The lungs are symmetrically aerated and clear. Pleural angles are sharp. Heart size is normal. The aorta is calcific. Pulmonary vasculature is not increased. No acute bony abnormalities seen. In the interval since the prior exam, a right shoulder replacement has been performed. Impression: No active disease. CT PULMONARY ANGIOGRAM: With IV contrast. HISTORY: Shortness of breath. Question pulmonary embolus. Comparison is made with today's chest x-ray. CONTRAST DOSE: 75 mL of Isovue [address] TECHNIQUE: Helical scanning is acquired and overlapping 1.5 mm and contiguous 3 mm axial images are reformatted. In addition, maximum intensity projection and multiplanar re-formation images are generated in sagittal and coronal imaging projections. CT PULMONARY ANGIOGRAPHIC FINDINGS: There is good opacification of the pulmonary arterial tree. There is no CT evidence of pulmonary embolism. Thoracic aorta enhances homogeneously and is normal in course and caliber. No aneurysm or dissection is seen. There are scattered areas of ground-glass opacity in the pulmonary parenchyma consistent with some early pulmonary edema. There are scattered mediastinal lymph nodes. These include an anterior mediastinal lymph node measuring 1.2 x 1.0 cm. No pleural or pericardial effusion is seen. No adrenal lesion is observed. There are several cysts in the left kidney the largest of which measures 8.1 cm in greatest diameter. There is mild fullness of the intrarenal collecting systems bilaterally. The spleen is at the upper range of normal in size measuring 13 cm. IMPRESSION: No CT evidence of pulmonary embolus. Scattered areas of ground-glass opacity in the lung parenchyma may reflect early pulmonary edema. There are a few normal-sized mediastinal lymph nodes. Borderline spleen size. Left renal cysts. Mild fullness of the intrarenal collecting systems of both kidneys Duplex extremity venous ultrasound: Bilateral lower extremity nicolette History: It rule out DVT. Findings: The deep veins are anechoic and fully compressible from the groin to the popliteal fossa in the left and right lower extremity. Color flow imaging is homogeneous. Spectral Doppler interrogation demonstrates intact respiratory variation in flow and normal manual augmentation of flow. There is no evidence of deep vein thrombosis. Impression: Negative bilateral lower extremity duplex venous ultrasound. No evidence of deep vein thrombosis. DATE OF PROCEDURE: 07/17/2018 AGE: 78 REFERRING PROVIDER: Dr. Raúl Seals PATIENT LOCATION: Room 3230 REASON FOR THE ECHOCARDIOGRAM: Heart failure, unspecified. 2D MEASUREMENTS: IVS: 1.1 cm LV: 5.0 cm LVPW: 1.0 cm LA: 3.3 cm Aorta: 3.0 cm IVC: 1.9 cm DOPPLER MEASUREMENTS: Peak velocity across the aortic valve: 1.1 m/s Peak velocity across the LVOT: 1.3 m/s Mitral E: 0.82, Mitral A: 0.9 with a ratio of 0.9 2D COMMENTS: 1. Normal left ventricular size, wall thickness and normal global left ventricular systolic function. The estimated left ventricular systolic ejection fraction is 65-70%. A sigmoid appearance of the basal ventricular septum was noted. 2. Normal left atrium. Normal right atrium and right ventricle. 3. The atrial septum appeared to be normal without evidence of defect or shunt. 4. Normal aortic root. 5. No pericardial effusion seen. 6. Moderately calcified aortic valve with normal leaflet excursion. Normal mitral valve, tricuspid valve and pulmonic valve. The proximal pulmonary artery branches appeared to be normal. 7. The inferior vena cava was normal in size. Central venous pressure is most likely normal. DOPPLER: It detects trace tricuspid regurgitation. Pulmonary artery systolic pressure was not calculated but most likely normal. Abnormal relaxation pattern was noted across the mitral valve leaflets, as well as the mitral valve annulus consistent with features of grade 1 left ventricular diastolic dysfunction. IMPRESSION: 1. Normal global left ventricular systolic function. There are features of left ventricular diastolic dysfunction manifested by abnormal relaxation. 2. Aortic valve sclerosis without stenosis or aortic regurgitation. 3. Trace tricuspid regurgitation. 4. A sigmoid appearance of the basal ventricular system was noted. Benign finding. PROGNOSIS: Fair ACTIVITY: As tolerated. DIET: 1800 mL fluid restricted, 2 g low sodium diet DISCHARGE PLAN: DISPOSITION: 01 Home, Self-Care. DISCHARGE INSTRUCTIONS: I discussed the need for the patient to adhere to a fluid restricted 2 g low sodium diet, and to obtain daily weights. Should the patient gain more than 2 pounds in a day, and/or note increased fluid retention in her lower extremities or difficulty breathing, the patient has been instructed to follow-up with her primary care physician for further titration of her medications and evaluation. Lastly, the patient has been advised to follow up with her primary care samantha watts within 7 days. She is to return to the ER for any acute emergencies. DISCHARGE CONDITION: Stable. TIME SPENT ON DISCHARGE: Greater than 30 minutes. Vital Signs/I&Os Vital Signs Date Time Temp Pulse Resp B/P (MAP) Pulse Ox O2 Delivery O2 Flow Rate FiO2 07/20/18 10:45 18 07/20/18 06:00 96.3 80 150/80 (103) 96 07/17/18 16:00 Nasal Cannula 07/17/18 10:12 2.0 07/17/18 09:00 96 I&O- Last 24 Hours up to 6 AM 07/20/18 06:00 Intake Total 960 ml Output Total 1575 ml Balance -615 ml Laboratory Data Labs 24H Laboratory Tests 2 07/20/18 05:57: Nucleated Red Blood Cells % (auto) 0.0, Anion Gap 6L, Glomerular Filtration Rate > 60.0, Blood Urea Nitrogen 23H, Creatinine 0.62, Sodium Level 143, Potassium Level 4.0#, Chloride Level 110H, Carbon Dioxide Level 27, Calcium Level 9.4, Magnesium Level 2.1 CBC/BMP Laboratory Tests 07/20/18 05:57 Red Blood Count 3.73 L, Mean Corpuscular Volume 100.3 H, Mean Corpuscular Hemoglobin 31.1, Mean Corpuscular Hemoglobin Concent 31.0 L, Red Cell Distribu tion Width 13.3, Calcium Level 9.4 Discharge Medications Scheduled (Womens Multivitamin) 1 Tab Tab, 1 TAB PO DAILY, (Reported) (Restasis) 0.05 % Emu, 1 DROP OU BID, (Reported) (Flax Seed Oil 1000 mg) 1 Cap Cap, 1 CAP PO DAILY, (Reported) Furosemide (Furosemide) 20 Mg Tab, 40 MG PO DAILY Gabapentin (Gabapentin) 600 Mg Tab, 600 MG PO TID, (Reported) Naproxen (Naproxen) 500 Mg Tab, 500 MG PO Q12H, (Reported) Omeprazole (Omeprazole) 20 Mg Cap, 20 MG PO DAILY, (Reported) Potassium Chloride (Potassium Chloride ER) 10 Meq Tab, 10 MEQ PO BID, (Reported) Venlafaxine Hydrochloride (Venlafaxine HCl ER) 150 Mg Cap, 150 MG PO DAILY, (R eported) Scheduled PRN Acetaminophen/Hydrocodone (Hydrocodone/Acetaminophen 5-325 mg) 1 Tab Tab, 1 TAB PO Q6H PRN for PAIN, (Reported) MAY TAKE ONE TO TWO TABS PRN Allergies Coded Allergies: No Known Allergies (Unverified , 09/15/13) RAÚL SEALS MD Jul 20, 2018 15:16
== END 2018-07-20 12:20 | disposition home or self-care (01) | DRG 293 ==
LOC: M ED 08:42 → M ED INP 12:18 → M PCU 16:04 → M MS5PR 07-19 16:52
PROVIDERS: ADMIT Internal Medicine; ATTEND Internal Medicine
DX: I11.0 Hypertensive heart disease with heart failure (principal); I50.33 Acute on chronic diastolic (congestive) heart failure; K21.9 Gastro-esophageal reflux disease without esophagitis; F41.9 Anxiety disorder, unspecified; G62.9 Polyneuropathy, unspecified; M48.061 Spinal stenosis, lumbar region without neurogenic claudication; Z98.1 Arthrodesis status; Z79.899 Other long term (current) drug therapy

== ENCOUNTER 2018-11-19 11:46 | Day surgery (SDC) | payer MEDICARE, BC, OTHER ==
[~2018-11-19] VITALS: Ht 168.9 cm; Wt 84.4 kg
[~2018-11-19 11:46] MED LIST changes: +ADVI200T PO; +FLAX10002 PO; +FURO20TA2 PO; +GABA600T4 PO; +HYDR-3713 PO; +LIDOCAINE 1% MDV 20ML VIAL SQ PRN; +LR 1,000 ML IV ONE; +NAPR-885 PO; -OMEP20CA3 PO; +OMEP20CA4 PO; +REST0.05 OU
[2018-11-19] MEDS ORDERED: VASOPRESSIN INJ 20 UNITS/ML VIAL As Ordered ONE (14:04)
[2018-11-19] MEDS ORDERED: fentaNYL 100 MCG/2 ML INJECTION (J3010) As Ordered ONE ×2 (14:44→15:44)
[2018-11-19] MEDS ORDERED: MIDAZOLAM INJ 2 MG/2 ML VIAL (J2250) As Ordered ONE (14:44)
[2018-11-19] MEDS ORDERED: LIDOCAINE 2% INJ 100 MG/5 ML SDV (FOR ANES.) As Ordered ONE (14:44)
[2018-11-19] MEDS ORDERED: ACETAMINOPHEN 1000MG 100ML IV BTL (OFIRMEV) (J0131 PER 10MG) As Ordered ONE (14:44)
[2018-11-19] MEDS ORDERED: ONDANSETRON 4MG/2ML VIAL (J2405) As Ordered ONE (14:44)
[2018-11-19] MEDS ORDERED: dexameTHASONE 4 MG/ML 1ML VIAL (J1100) As Ordered ONE (14:44)
[2018-11-19] MEDS ORDERED: PROPOFOL 200 MG/20 ML VIAL As Ordered ONE (14:44)
[2018-11-19] MEDS ORDERED: ePHEDrine SULFATE 25 MG/5 ML(5MG/ML) SYRINGE As Ordered ONE (14:48)
[2018-11-19] MEDS ORDERED: PERCOCET 5MG/325MG TAB As Ordered ONE (15:30)
[2018-11-19] MEDS ORDERED: NORCO, ANEXSIA 5/325MG TABLET (HYDROcodone/ACETAMINOPHEN) PO PRN (15:45)
[2018-11-19] MEDS ORDERED: IBUPROFEN 600 MG TAB PO PRN (15:45)
[2018-11-19] MEDS ORDERED: ONDANSETRON 4MG/2ML VIAL (J2405) IV PRN (15:45)
[2018-11-19] MEDS ORDERED: LR 1,000 ML IV SCH (15:45)
[2018-11-19] MEDS ORDERED: PERCOCET 5MG/325MG TAB PO PRN (15:45)
[2018-11-19] MEDS: fentaNYL 100 MCG/2 ML INJECTION (J3010) IV PRN ×2 (15:48→15:53)
[2018-11-19 17:00] VITALS: BP 137/82
--- NOTE | 2018-11-20 12:44 | RO ---
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 PROCEDURE: Midurethral sling using Desara in a retropubic bottom to top placement and cystourethroscopy. SURGEON: Sydney Collins MD DISPLAY ASSOCIATE: ANESTHESIA: Laryngeal mask airway (LMA). DESCRIPTION OF PROCEDURE: Brief description of procedure and findings: Christina was brought to the operating room, where sufficient laryngeal mask airway (LMA) anesthesia was induced. She was draped, prepped, and positioned in the usual sterile fashion, then emptied the bladder and grasped the anterior vaginal wall. Approximately 1.5 cm cephalad from the urethral meatus, we injected vasopressin and then made an incision in the anterior vaginal wall, again, about 1.5 cm long. Using Strully scissors, we dissected out laterally for the channels for the trochars and then marking our anatomic landmarks, we placed first the left side, then the right-sided arm of the tension-free vaginal tape (TVT) Desara, starting bottom to top and working retropubically. We scoped her in between each placement for each arm and found no evidence of injury to the bladder, and she had normal ureteral orifices, normal trigone. She did have a little bit of a cystocele, but that was already a known finding and not something that was bothersome for the patient or something that she wanted treatment of. We went ahead and, having placed both sides, used the #8 Eryn and the red rubber covered stylette as spacers to get the appropriate tension. Then, removed the sheathing and trimmed the mesh, and then sutured the wounds using #2-0 in the vagina and #3-0 in the suprapubic exit sites. The bladder was, of course, emptied after the final cystoscopy, and the procedure was ended. ESTIMATED BLOOD LOSS FOR PROCEDURE: About 4 mL. FLUID REPLACEMENT: Was crystalloid. COMPLICATIONS: None. CONDITION AND DISPOSITION: Christina tolerated the procedure well and was recovering in the recovery room in good condition.
== END 2018-11-19 17:20 | disposition home or self-care (01) ==
LOC: M SDC 11:46
PROVIDERS: ATTEND Obstetrics & Gynecology
DX: N39.3 Stress incontinence (female) (male) (principal); N36.42 Intrinsic sphincter deficiency (ISD); R60.0 Localized edema; Z79.899 Other long term (current) drug therapy
CPT/HCPCS: 57288; C1771; J0131; J0690; J1100; J2250; J2405; J3010

== ENCOUNTER → 2018-11-26 | Outpatient (REF) | payer MEDICARE, OTHER ==
[~2018-11-26] MED LIST changes: -LIDOCAINE 1% MDV 20ML VIAL SQ PRN; -LR 1,000 ML IV ONE
[2018-11-26 12:49] LABS: BLOOD UREA NITROGEN 22 MG/DL (7-18); CREATININE FOR GFR 0.68 MG/DL (0.55-1.30); GLOMERULAR FILTRATION RATE > 60.0 (>39)
== END ==
LOC: M LABDRAW1 09:52
PROVIDERS: ATTEND Physician Assistant Surgical
DX: M17.0 Bilateral primary osteoarthritis of knee (principal)

== ENCOUNTER → 2018-12-30 | Outpatient (REF) | payer MEDICARE, OTHER ==
[~2018-12-30] MED LIST changes: +DIAZ5TAB PO; +FURO40TA2 PO; +HYDR-4571; +IBUP-1022 PO; +K-TA10TA2 PO; +METH4PACK PO; +MUPI2OI; +MYRB25TA PO; +OMEP-218 PO; +OMEP1CAP73 PO; -OMEP20CA4 PO; +PREDOPD OU; +TROS60CA2 PO; +XARE10TA PO
[2018-12-30 16:59] LABS: APPEARANCE, URINE HAZY (CLEAR); BACTERIA, URINE AUTO 1+ (NEGATIVE); BILIRUBIN, URINE AUTO NEGATIVE (NEGATIVE); BLOOD, URINE BLOOD NEGATIVE (NEGATIVE); COLOR, URINE YELLOW (YELLOW); GLUCOSE, URINE (UA) AUTO NEGATIVE (NEGATIVE); KETONE, URINE AUTO NEGATIVE (NEGATIVE); LEUKOCYTE ESTERASE, URINE AUTO NEGATIVE (NEGATIVE); NITRITE, URINE AUTO NEGATIVE (NEGATIVE); PROTEIN, URINE AUTO NEGATIVE (NEGATIVE); RBC, URINE AUTO 0 /HPF (0-3); SPECIFIC GRAVITY URINE AUTO 1.014 (1.002-1.035); SQUAMOUS EPITHELIAL CELL UR AU 0 /HPF (0-6); UROBILINOGEN, URINE AUTO 0.2 mg/dL (0.0-2.0); WBC, URINE AUTO 2 /HPF (0-3)
== END ==
LOC: M LAB REF 16:32
PROVIDERS: ATTEND Obstetrics & Gynecology
DX: N39.46 Mixed incontinence (principal)

== ENCOUNTER → 2019-02-15 | Outpatient (CLI) | payer MEDICARE, BC, OTHER ==
[~2019-02-15] MED LIST changes: -DIAZ5TAB PO; -FURO40TA2 PO; -HYDR-4571; -IBUP-1022 PO; -K-TA10TA2 PO; -METH4PACK PO; -MUPI2OI; -MYRB25TA PO; -OMEP-218 PO; -OMEP1CAP73 PO; +OMEP20CA4 PO; -PREDOPD OU; -TROS60CA2 PO; -XARE10TA PO
--- NOTE | 2019-02-15 11:42 | REP ---
Two-view chest: 02/15/2019. Indication: Preoperative assessment. Comparison: 07/17/2018. Findings: The lungs are clear. There is no pleural effusion or pneumothorax. Cardiac silhouette is normal. Impression: Clear lungs. Electronically Signed by Jace Masters DO 02/15/2019 11:33 A
[2019-02-15 13:02] LABS: HEMOGLOBIN 13.8 g/dl (12.0-15.5); MEAN CORPUSCULAR HEMOGLOBIN 30.8 pg (27.0-33.0); MEAN CORPUSCULAR HGB CONC 32.9 g/dl (32.0-36.5); MEAN CORPUSCULAR VOLUME 93.8 fl (80.0-96.0); PLATELET COUNT, AUTOMATED 183 10^3/uL (150-450); RED BLOOD COUNT 4.48 10^6/uL (4.00-5.40); WHITE BLOOD COUNT 6.1 10^3/uL (4.0-10.0)
[2019-02-15 13:17] LABS: INR 1.05; PROTHROMBIN TIME 13.4 SECONDS (11.8-14.0)
[2019-02-15 13:21] LABS: ALBUMIN 3.6 GM/DL (3.2-5.2); ALT/SGPT 21 U/L (12-78); BILIRUBIN,TOTAL 0.3 MG/DL (0.2-1.0); BLOOD UREA NITROGEN 21 MG/DL (7-18); CALCIUM LEVEL 8.9 MG/DL (8.8-10.2); CARBON DIOXIDE LEVEL 31 MEQ/L (21-32); CHLORIDE LEVEL 104 MEQ/L (98-107); CREATININE FOR GFR 0.75 MG/DL (0.55-1.30); GLOMERULAR FILTRATION RATE > 60.0 (>39); GLUCOSE, FASTING 108 MG/DL (70-100); POTASSIUM SERUM 3.1 MEQ/L (3.5-5.1); SODIUM LEVEL 142 MEQ/L (136-145); TOTAL PROTEIN 6.6 GM/DL (6.4-8.2)
[2019-02-15 13:25] LABS: ERYTHROCYTE SEDIMENTATION RATE 19 mm/hr (0-30)
--- NOTE | 2019-02-15 18:38 | ECGEPIP ---
[facility] Test Date: 2019-02-15 Pat Name: ARCHIE MARCUS Department: Room: - Gender: Female Anesthesiology Tech: MARCELO : 1940 Requested By: Rich Kwon @ [facility] Order Number: [id number] Reading MD: Sonny Muhammad Measurements Intervals [place] Rate: 72 P: 55 MA: 163 QRS: -46 QRSD: 108 T: 30 QT: 411 QTc: 450 Interpretive Statements SINUS RHYTHM WITH FREQUENT ECTOPIC PREMATURE COMPLEXES INCOMPLETE RIGHT BUNDLE BRANCH BLOCK LEFT ANTERIOR FASCICULAR BLOCK POSSIBLE LATERAL MYOCARDIAL INFARCTION, PROBABLY OLD No significant change from 07/17/18 Electronically Signed on 02-15-2019 18:37:58 EDT by Sonny Muhammad
== END ==
LOC: M LAB 10:43
PROVIDERS: ATTEND Orthopaedic Surgery
DX: M17.11 Unilateral primary osteoarthritis, right knee (principal); Z79.899 Other long term (current) drug therapy

== ENCOUNTER → 2019-02-25 | Outpatient (RCR) | payer MEDICARE, BC, OTHER ==
[~2019-02-25] MED LIST changes: +DIAZ5TAB PO; +FURO40TA2 PO; +IBUP-1022 PO; +K-TA10TA2 PO; +METH4PACK PO; +MYRB25TA PO; +OMEP-218 PO; +PREDOPD OU; +TROS60CA2 PO
== END | disposition home or self-care (01) ==
LOC: M PT 11:17
PROVIDERS: ATTEND Orthopaedic Surgery
DX: Z47.89 Encounter for other orthopedic aftercare (principal); Z96.651 Presence of right artificial knee joint

== ENCOUNTER 2019-03-03 06:53 | Inpatient (IN) | payer MEDICARE, BC, OTHER ==
--- NOTE | 2019-03-01 14:33 | HPE ---
DATE OF ADMISSION: 03/03/2019 ATTENDING PHYSICIAN: Dr. Fuller CHIEF COMPLAINT: Right knee pain and stiffness. HISTORY: The patient is a 78-year-old female with progressively worsening right knee pain and stiffness. She failed to improve with conservative measures. She continues to have symptoms with weightbearing activities and activities of daily living. She consented for an elective right total knee arthroplasty with Dr. Fuller for her continued symptoms. Medical optimization completed with Dr. Nestor Agarwal. CURRENT MEDICATIONS: - [place] 5/325 mg two times daily as needed - potassium 10 mEq daily - gabapentin 600 mg daily - Effexor 150 mg daily - omeprazole 20 mg daily - hydrochlorothiazide 50 mg daily - daily multivitamin ALLERGIES: There are NO KNOWN DRUG ALLERGIES. CHRONIC MEDICAL CONDITIONS: Hypertension, low back pain, gastroesophageal reflux disease. PAST SURGICAL HISTORY: Hysterectomy with bilateral salpingo-oophorectomy, foot surgery times five, thumb surgery, right total shoulder arthroplasty. SOCIAL HISTORY: The patient is and lives at home with spouse. She does not use tobacco or alcohol. REVIEW OF SYSTEMS: The patient denies fevers, chills, nausea, vomiting or diarrhea. She denies chest pain, shortness of breath, lightheadedness, dizziness or headaches. She does continue to have right knee pain with weightbearing activities and activities of daily living. PHYSICAL EXAMINATION: General: Well-nourished, well-developed female in no apparent distress. She is alert, oriented and cooperative. Mood and affect are appropriate. Vital signs: Height 5 feet 6 inches, weight 187 pounds, temperature 98.2, blood pressure 128/78, heart rate 66, respirations 14. Neck: Supple without lymphadenopathy. Heart: Regular rate and rhythm. Lungs: Clear to auscultation bilaterally. Abdomen: Bowel sounds are present. Abdomen is soft and nontender to palpation. Musculoskeletal: Right knee exhibits no gross abnormalities. Skin is intact. There is tenderness along the medial and lateral joint lines. The patient has full extension of the knee and can flex to about 110 degrees. Right lower extremity strength is 5/5. No hip irritability was elicited with range of motion testing. She is neurovascularly intact distally. LABORATORY DATA/DIAGNOSTICS: Chest x-ray: Lungs are clear without pleural effusion or pneumothorax. Cardiac silhouette is normal. Right knee x-ray notable for end-stage degenerative changes. EKG: Sinus rhythm with frequent ectopic premature complexes. Incomplete right bundle branch block. Left anterior fascicular block and possible lateral myocardial infarction, probably old. Comprehensive metabolic profile: Fasting glucose elevated at 108, BUN elevated at 21, creatinine 0.75, GFR greater than 60, sodium 142, potassium decreased at 3.1, chloride 104, carbon dioxide 31, anion gap decreased at 7, calcium 8.9, AST 15, ALT 21, alkaline phosphatase 93, total bilirubin 0.3, total protein 6.6, albumin 3.6, albumin-globulin ratio 1.20. Prothrombin time 13.4, INR 1.05. Complete blood count: ESR 19, WBCs 6.1, RBCs 4.48, hemoglobin 13.8, hematocrit 42, platelets 183. IMPRESSION: Right knee osteoarthritis with x-rays notable for end-stage degenerative changes. PLAN: The patient consented for an elective right total knee arthroplasty with Dr. Fuller for her continued symptoms. Medical optimization completed with Dr. Agarwal. Review of pre and postoperative instructions to include but not limited to need to be nothing by mouth after midnight, length of stay, when to stop NSAIDs and aspirin, importance of following primary care or cardiology recommendations for stopping anticoagulants and primary care recommendations for her to take her daily medications.
[~2019-03-03] VITALS: Ht 170.2 cm; Wt 87.1 kg
[~2019-03-03 06:53] MED LIST changes: +ACETAMINOPHEN 500 MG TAB PO ONE; +LR 1,000 ML IV ONE; +ceFAZolin SOD 2 GM in IV 1 EA IV ONE
[2019-03-03] MEDS ORDERED: HYDR-4571 (08:03)
[2019-03-03] MEDS ORDERED: MUPI2OI (08:03)
[2019-03-03] MEDS ORDERED: PROPOFOL 200 MG/20 ML VIAL As Ordered ONE (08:34)
[2019-03-03] MEDS ORDERED: LIDOCAINE PRES-FREE 2% 10ML AMP As Ordered ONE (08:34)
[2019-03-03] MEDS ORDERED: MIDAZOLAM INJ 2 MG/2 ML VIAL (J2250) As Ordered ONE ×2 (08:34→08:52)
[2019-03-03] MEDS ORDERED: ONDANSETRON 4MG/2ML VIAL (J2405) As Ordered ONE (08:34)
[2019-03-03] MEDS ORDERED: fentaNYL 100 MCG/2 ML INJECTION (J3010) As Ordered ONE ×2 (08:34→08:52)
[2019-03-03] MEDS ORDERED: dexameTHASONE 4 MG/ML 1ML VIAL (J1100) As Ordered ONE (08:34)
[2019-03-03] MEDS ORDERED: TRANEXAMIC ACID 100 MG/ML 10ML VIAL As Ordered ONE (09:40)
[2019-03-03] MEDS ORDERED: BUPIVACAINE HCL 0.25% 10 ML VIAL As Ordered ONE (09:40)
[2019-03-03] MEDS ORDERED: ceFAZolin 1GM INJ (J0690 PER 500MG) As Ordered ONE (09:40)
[2019-03-03] MEDS ORDERED: BUPIVACAINE LIPOSOME/PF 1.3% 20ML VIAL (13.3MG/ML)(EXPAREL)(C9290 PER1MG) As Ordered ONE (09:41)
[2019-03-03] MEDS ORDERED: EPINEPHrine INJ 1 MG/ML 1ML AMP As Ordered ONE (09:41)
[2019-03-03] MEDS ORDERED: MIDAZOLAM INJ 2 MG/2 ML VIAL (J2250) IV ONE (09:45)
[2019-03-03] MEDS ORDERED: fentaNYL 100 MCG/2 ML INJECTION (J3010) IV ONE (09:45)
[2019-03-03] MEDS ORDERED: oxyCODONE 5MG TAB As Ordered ONE (11:59)
[2019-03-03] MEDS: fentaNYL 100 MCG/2 ML INJECTION (J3010) IV PRN ×4 (12:00→12:15)
[2019-03-03] MEDS: oxyCODONE 5MG TAB PO PRN ×2 (12:05→12:40)
[2019-03-03] MEDS ORDERED: FLEET ENEMA PR PRN (12:15)
[2019-03-03] MEDS ORDERED: ONDANSETRON 4MG/2ML VIAL (J2405) IV PRN (12:15)
[2019-03-03] MEDS ORDERED: ACETAMINOPHEN TAB 650MG DOSE (2X325MG) PO PRN (12:15)
[2019-03-03] MEDS ORDERED: LR 1,000 ML IV SCH ×2 (12:15)
--- NOTE | 2019-03-03 12:39 | RO ---
DATE OF PROCEDURE: 03/03/2019 PREOPERATIVE DIAGNOSIS: Right knee degenerative arthritis. POSTOPERATIVE DIAGNOSIS: Right knee degenerative arthritis. PROCEDURE: Right total knee arthroplasty using a size 5 cruciate-retaining femoral component with a size 5 tibial tray and a 32-mm polyethylene button and a 5-mm rotating-platform polyethylene insert. The prosthesis was made by [employer]. All components were cemented. It was an [employer] knee. SURGEON: Rich Fuller MD RACE STEWARD: Ms. Alma Wong ANESTHESIA: Spinal with right femoral nerve block. COMPLICATIONS: None. ESTIMATED BLOOD LOSS: 20 mL. SPECIMEN: Joint surface. DESCRIPTION OF PROCEDURE: Antibiotics were given intravenously preoperatively, then a successful right femoral nerve block, then spinal anesthetic was induced. The tourniquet was placed on the right upper thigh and not inflated. The right lower extremity was carefully prepped and draped in the usual sterile fashion. The leg elevated. Then, after appropriate time-out, the tourniquet was inflated. A longitudinal incision was made for a medial parapatellar approach to the knee. Bovie cautery was used to coagulate the crossing vessels. Subperiosteal dissection around the proximal medial and lateral tibial plateau was performed. Then, the patella was everted and the anterior cruciate ligament (ACL) debrided. Drill placed down the center of the femoral canal, followed by the intramedullary pablo and the distal femoral cutting jig set at 5-degree valgus cut at a 9-mm resection level for a right knee. The block was pinned into position. The distal femoral cut was then performed. AP sizing jig measured for a size 5. 3 degrees of external rotation were dialed in and then the pins placed and the 4-in-1 block applied, anterior and posterior chamfer cuts performed, and then the sulcus cut was performed using the jig. We then exposed the proximal tibia and used the extramedullary alignment jig to estimate being parallel to the mechanical axis, referencing off the medial tibial condyle at 4-mm resection level. The block was pinned into position. A secondary check with the extramedullary pablo confirmed that we appeared to be parallel to the mechanical axis. At this point, the proximal tibial osteotomy performed. The lamina pit recorder was then placed medially, and we performed a completion of lateral meniscectomy and debridement of the posterior and lateral osteophytes, and then placed the lamina pit recorder laterally, and performed a completion medial meniscectomy and debridement of the posterior and medial osteophytes. The spacer blocks were then trialed; and even with the 5-mm, it was still a bit too snug both in flexion and in extension. Thus, I felt it best to take additional 2 mm from the proximal tibia. The block was reapplied, and the 2 mm were resected from the proximal tibia, and then the 5-mm spacer block fit nicely with good symmetry and in flexion and in extension with good stability to varus-valgus stress testing. We then exposed the proximal tibia, sized for a #5 tibial tray. The block was then pinned into position, followed by the reamer and the broach. The trial polyethylene was placed, followed by the trail femoral component. The knee was brought into extension, patella everted, patellar osteotomy performed, sized for a 32 button. The lug holes drilled. The trial was placed. The patellofemoral tracking was anatomic. We then drilled the lug holes for the femur. Removed all the trial components. Placed Exparel in the subperiosteal tissues around the distal femur and the proximal tibia, and then Ms. Alma Wong mixed the cement on the back table as I prepared the bony surfaces for cementing with a copious amount of pulse lavage irrigant solution. Ms. Wong was critical to the success of this difficult surgery by helping with appropriate soft tissue retraction, helped to close the wound, helped to prepare the patient, helped to manipulate the knee as needed so I could perform the operation smoothly, efficiently, and safely. We then cemented the tibial tray, removed excess cement, placed the polyethylene, and then cemented the femoral component, removed excess cement, and brought the knee out into extension, everted the patella, and cemented the patellar button, and held it with a clamp with the knee in extension, and we held this position until the cement hardened. The excess cement was removed. We copiously pulsatile lavage irrigated out the knee joint with the knee in extension as we awaited for the bone cement to harden and then placed tranexamic acid in the knee and then began closing the apex of the arthrotomy with two #1 polydioxanone suture (PDS) sutures. The medial parapatellar area was closed with a #1 PDS suture, and then we let the tourniquet down at this point. We irrigated between layers, closed the deep subdermal tissues with interrupted #2-0 PDS sutures. The skin was closed with sidra, covered by an Optifoam dry sterile bulky dressing. She was then transferred to the recovery room in stable condition. There were no intraoperative complications.
[2019-03-03 12:57] LABS: HEMATOCRIT 40.8 % (36.0-47.0); MEAN CORPUSCULAR HEMOGLOBIN 31.3 pg (27.0-33.0); MEAN CORPUSCULAR HGB CONC 31.9 g/dl (32.0-36.5); MEAN CORPUSCULAR VOLUME 98.1 fl (80.0-96.0); PLATELET COUNT, AUTOMATED 153 10^3/uL (150-450); RED BLOOD COUNT 4.16 10^6/uL (4.00-5.40); WHITE BLOOD COUNT 6.5 10^3/uL (4.0-10.0)
[2019-03-03 13:23] LABS: ALBUMIN 3.4 GM/DL (3.2-5.2); ALT/SGPT 17 U/L (12-78); BILIRUBIN,TOTAL 0.2 MG/DL (0.2-1.0); BLOOD UREA NITROGEN 22 MG/DL (7-18); CALCIUM LEVEL 9.4 MG/DL (8.8-10.2); CARBON DIOXIDE LEVEL 33 MEQ/L (21-32); CHLORIDE LEVEL 108 MEQ/L (98-107); CREATININE FOR GFR 0.86 MG/DL (0.55-1.30); GLOMERULAR FILTRATION RATE > 60.0 (>39); GLUCOSE, FASTING 126 MG/DL (70-100); MAGNESIUM LEVEL 1.8 MG/DL (1.8-2.4); POTASSIUM SERUM 3.3 MEQ/L (3.5-5.1); SODIUM LEVEL 144 MEQ/L (136-145); TOTAL PROTEIN 6.5 GM/DL (6.4-8.2)
--- NOTE | 2019-03-03 13:30 | REP ---
Right knee: Two views. History: Postop evaluation. Findings: The patient is status post right knee arthroplasty. Portably obtained AP and lateral views demonstrate anterior skin sidra. There is air in the suprapatellar bursa and some perioperative subcutaneous emphysema is seen in the extra-articular soft tissues. Prosthetic components are well aligned. Impression: Status post right knee arthroplasty. Electronically Signed by Shimon Branham MD 03/03/2019 02:16 P
[2019-03-03 13:37] VITALS: BP 134/78
--- NOTE | 2019-03-03 13:56 | CR ---
DATE OF CONSULTATION: 03/03/2019 REQUESTING PHYSICIAN: Dr. Doyle Fuller. PRIMARY CARE PROVIDER: Dr. Nestor Agarwal. Christina Christensen is a 78-year-old seen postoperatively after having a right knee replacement. PAST MEDICAL HISTORY: She has a past medical history of hypertensive heart disease. She had an episode of volume overload that was labeled as diastolic congestive heart failure June 2018. Essentially, she had excess IV fluids after having a lumbar spinal fusion surgery in [place] a few weeks prior to that admission. Echocardiogram at that time showed normal ejection fraction of 65-70%, aortic sclerosis without stenosis, mild ventricular diastolic dysfunction to be expected for age. History of vasomotor hot flashes for which she is taking Effexor, hyperlipidemia, hypokalemia. SURGICAL HISTORY: Hysterectomy with bilateral salpingo-oophorectomy. Thumb surgery 2005. Five foot procedures. CURRENT MEDICATIONS: - furosemide 20 mg daily - gabapentin 600 mg three times a day - hydrochlorothiazide 50 mg daily -Vicodin as needed - ibuprofen 600 mg three times a day - Myrbetriq 25 mg daily - omeprazole 20 mg daily - potassium chloride 10 mEq twice a day - trospium chloride one capsule daily - Effexor XR 115 mg daily ALLERGIES: No known drug allergies REVIEW OF SYSTEMS: No chest pain, shortness of breath, orthopnea, paroxysmal nocturnal dyspnea (PND). She has chronic lower extremity edema. PHYSICAL EXAMINATION: Seen postoperatively, her vital signs are stable. Blood pressure 147/65, pulse 77, respiratory rate 18, 93% saturation on 3 liters. General appearance: Alert, conversant, in no distress. HEENT: Unremarkable. No jugular venous distention (JVD). Lungs: Clear. Heart: Regular rhythm. No murmur. Abdomen: Soft, nontender. No masses. Trace peripheral edema even with compression stockings. LABS: CBC unremarkable. Hemoglobin 13.8, potassium was only 3.1 on 02/15/2019. Renal function normal. IMPRESSION: 1. Hypertensive heart disease: Hold her antihypertensives until her blood pressure is up postoperatively. Suggest reducing the dose of hydrochlorothiazide in the face of this significant persisting hypokalemia. 2. Hypokalemia: I have ordered followup labs for today and will also replace the potassium if necessary. I can not tell if any adjustments of potassium were made after her preop labs are done. Will get a followup lab work with the magnesium tomorrow. 3. Diastolic congestive heart failure: She seems well compensated. For the moment, the diastolic dysfunction appears minimal probably appropriate. Hold her furosemide and hydrochlorothiazide at this time. She has postop IV fluids going. 4. History of estrogen efficiency vasomotor symptoms: Restart Effexor XR postoperatively to avoid a serotonin-norepinephrine reuptake inhibitor (SNRI) withdrawal. 5. Urinary incontinence: Hold off on the Myrbetriq and trospium until she is up and about postoperatively. Hospitalist group will follow the patient medically postop.
[2019-03-03 14:11] VITALS: BP 115/69
[2019-03-03 15:08] VITALS: BP 141/75
[2019-03-03] MEDS ORDERED: HYDROMORPHONE HCL 0.5 MG/ 0.5 ML SYRINGE (J1170 PER 1) IV PRN ×2 (15:15)
[2019-03-03] MEDS: VENLAFAXINE **XR** 75MG CAPSULE PO SCH (16:19)
[2019-03-03] MEDS: ceFAZolin SOD 2 GM in IV 1 EA IV SCH ×2 (16:19→21:48)
[2019-03-03] MEDS: GABAPENTIN 300 MG CAP PO SCH ×2 (16:19→21:48)
[2019-03-03 16:21] VITALS: BP 135/74
[2019-03-03 18:29] VITALS: BP 134/74
[2019-03-03] MEDS ORDERED: PERCOCET 5MG/325MG TAB PO PRN (19:30)
[2019-03-03] MEDS: PERCOCET 5MG/325MG TAB PO PRN (19:55)
[2019-03-03] MEDS: POTASSIUM CHLORIDE 10 MEQ SR TABLET PO SCH (21:48)
[2019-03-03 22:00] VITALS: BP 134/74
[2019-03-04] MEDS: PERCOCET 5MG/325MG TAB PO PRN ×3 (00:19→11:44)
[2019-03-04 01:30] VITALS: BP 116/53
[2019-03-04] MEDS: ceFAZolin SOD 2 GM in IV 1 EA IV SCH (04:16)
[2019-03-04] MEDS ORDERED: XARE10TA PO (06:21)
[2019-03-04] MEDS ORDERED: PERC5TAB12 PO (06:21)
[2019-03-04 06:29] VITALS: BP 122/71
[2019-03-04 07:22] LABS: HEMATOCRIT 38.4 % (36.0-47.0); MEAN CORPUSCULAR HEMOGLOBIN 30.5 pg (27.0-33.0); MEAN CORPUSCULAR HGB CONC 31.3 g/dl (32.0-36.5); MEAN CORPUSCULAR VOLUME 97.5 fl (80.0-96.0); PLATELET COUNT, AUTOMATED 174 10^3/uL (150-450); RED BLOOD COUNT 3.94 10^6/uL (4.00-5.40); WHITE BLOOD COUNT 10.1 10^3/uL (4.0-10.0)
[2019-03-04 07:51] LABS: BLOOD UREA NITROGEN 18 MG/DL (7-18); CALCIUM LEVEL 8.8 MG/DL (8.8-10.2); CARBON DIOXIDE LEVEL 34 MEQ/L (21-32); CHLORIDE LEVEL 102 MEQ/L (98-107); CREATININE FOR GFR 0.86 MG/DL (0.55-1.30); GLOMERULAR FILTRATION RATE > 60.0 (>39); GLUCOSE, FASTING 120 MG/DL (70-100); MAGNESIUM LEVEL 1.8 MG/DL (1.8-2.4); POTASSIUM SERUM 3.1 MEQ/L (3.5-5.1); SODIUM LEVEL 142 MEQ/L (136-145)
[2019-03-04] MEDS ORDERED: OMEPRAZOLE 20 MG CAP PO SCH (09:00)
[2019-03-04] MEDS ORDERED: MIRALAX *UNIT DOSE* 17GM PACKET PO SCH (09:00)
[2019-03-04] MEDS ORDERED: MOM 30ML SUSPENSION UDC PO SCH (09:00)
[2019-03-04] MEDS: VENLAFAXINE **XR** 75MG CAPSULE PO SCH (09:19)
[2019-03-04] MEDS: POTASSIUM CHLORIDE 10 MEQ SR TABLET PO SCH (09:19)
[2019-03-04] MEDS: GABAPENTIN 300 MG CAP PO SCH (09:19)
--- NOTE | 2019-03-04 14:00 | IPNPDOC ---
Subjective Date Seen The patient was seen on 03/04/19. Subjective Chief Complaint/HPI complains of mild pain at the surgical site otherwise no other complaints. No fever or chills, no chest pain or sob , no abdominal pain nausea or vomiting. Objective Physical Examination General Exam: Positive: Alert, Cooperative, No Acute Distress Eye Exam: Positive: PERRLA, Conjunctiva & lids normal, EOMI; Negative: Sclera icteric ENT Exam: Positive: Atraumatic, Mucous membr. moist/pink, Pharynx Normal Neck Exam: Positive: Supple; Negative: JVD, thyromegaly Chest Exam: Positive: Clear to auscultation, Normal air movement Heart Exam: Positive: Rate Normal, Regular Rhythm, Normal S1, Normal S2; Negative: Murmurs, Rubs Abdomen Exam: Positive: Normal bowel sounds, Soft; Negative: Tenderness, Hepatospenomegaly Extremity Exam: Positive: Normal pulses; Negative: Clubbing, Cyanosis, Edema Assessment /Plan Assessment S/P right knee replacement for advanced osteoarthritis pain control and dvt prophylaxis as per orthopedics. Hypertension with Hypertensive heart disease patient is on lasix and HCTZ BP controlled. Hypokalemia due to double diuretics replaced continue home potassium Diastolic congestive heart failure: She seems well compensated. resume home diuretics. History of estrogen efficiency vasomotor symptoms: Restart Effexor XR Urinary incontinence: continue Myrbetriq and trospium Back surgery in may 2018 back continues to bother her. Plan/VTE VTE Prophylaxis Ordered?: Yes VS, I&O, 24H, Fishbone Vital Signs/I&O Vital Signs Date Time Temp Pulse Resp B/P (MAP) Pulse Ox O2 Delivery O2 Flow Rate FiO2 03/04/19 06:29 96.8 85 20 122/71 (88) 87 Room Air 03/03/19 22:00 2.0 I&O- Last 24 Hours up to 6 AM 03/04/19 05:59 Intake Total 4950 ml Output Total 2150 ml Balance 2800 ml Laboratory Data 24H LABS Laboratory Tests 2 03/03/19 12:40: Nucleated Red Blood Cells % (auto) 0.0, Anion Gap 3L, Glomerular Filtration Rate > 60.0, Calcium Level 9.4, Magnesium Level 1.8, Total Bilirubin 0.2, Aspartate Amino Transf (AST/SGOT) 14, Alanine Aminotransferase (ALT/SGPT) 17, Alkaline Phosphatase 85, Total Protein 6.5, Albumin 3.4, Albumin/Globulin Ratio 1.10 CBC/BMP Laboratory Tests 03/03/19 12:40 MYLES RAMIREZ MD Mar 04, 2019 07:00
[2019-03-04] MEDS ORDERED: RIVAROXABAN 10 MG TAB (XARELTO) PO SCH (18:00)
--- NOTE | 2019-03-05 15:09 | DSES ---
DATE OF ADMISSION: 03/03/2019 DATE OF DISCHARGE: 03/04/2019 ADMISSION DIAGNOSIS: Symptomatic right knee osteoarthritis. DISCHARGE DIAGNOSIS: Status post right total knee arthroplasty. OPERATION PERFORMED: Right total knee arthroplasty. HOSPITAL COURSE: The patient uneventfully underwent right total knee arthroplasty on 03/03/2019 under spinal with right femoral nerve block. The patient tolerated the procedure well and was returned to recovery comfortable. Our hospital team felt she was ready for discharge on 03/04/2019 with the following instructions: Weightbearing as tolerated with walker, diet is regular, Percocet as needed pain, thromboembolic deterrent stockings (TEDS) times 30 days, Xarelto 10 mg p.o. daily per protocol, Optifoam dressing change in 4-7 days time. Followup at orthopedic group 12-14 days for wound check and potential staple removal. The patient is encouraged contact our office sooner with increased pain, numbness, tingling, drainage, fever greater than 101 or further concerns.
== END 2019-03-04 13:09 | disposition home or self-care (01) | DRG 470 ==
LOC: M OR 06:53 → M MS5PR 13:23
PROVIDERS: ADMIT Orthopaedic Surgery; ATTEND Orthopaedic Surgery
PROC: 0SRC0J9 Replacement of Right Knee Joint with Synthetic Substitute, Cemented, Open Approach (ICD-10-PCS; principal; 2019-03-03 09:55)
DX: M17.11 Unilateral primary osteoarthritis, right knee (principal); I50.32 Chronic diastolic (congestive) heart failure; Z79.899 Other long term (current) drug therapy; I11.0 Hypertensive heart disease with heart failure; M54.5 Low back pain; K21.9 Gastro-esophageal reflux disease without esophagitis; Z90.79 Acquired absence of other genital organ(s); Z96.611 Presence of right artificial shoulder joint; E78.5 Hyperlipidemia, unspecified; E87.6 Hypokalemia; R32 Unspecified urinary incontinence; N95.1 Menopausal and female climacteric states; Z98.1 Arthrodesis status

== ENCOUNTER → 2019-03-17 | Outpatient (CLI) | payer MEDICARE, BC, OTHER ==
[~2019-03-17] MED LIST changes: -ACETAMINOPHEN 500 MG TAB PO ONE; +HYDR-4571; -LR 1,000 ML IV ONE; +MUPI2OI; +OMEP-172 PO; -OMEP20CA4 PO; +XARE10TA PO; -ceFAZolin SOD 2 GM in IV 1 EA IV ONE
--- NOTE | 2019-03-17 10:56 | REP ---
Right lower extremity Duplex Doppler venous ultrasound: Real time compression and duplex Doppler interrogation of the right lower extremity deep venous system is performed. The right common femoral, superficial femoral and popliteal veins are fully compressible with transducer pressure and demonstrate normal spontaneous and phasic flow, without evidence of deep venous thrombosis. Impression: No evidence of deep venous thrombosis of the right lower extremity femoral popliteal venous system. In the popliteal fossa there is a complex fluid collection measuring 3.9 x 1.5 x 2.8 cm. Electronically Signed by Clarke Farfan MD 03/17/2019 10:48 A
== END ==
LOC: M RAD 10:04
PROVIDERS: ATTEND Physician Assistant Surgical
DX: M25.461 Effusion, right knee (principal); Z96.651 Presence of right artificial knee joint

== ENCOUNTER → 2019-04-01 | Outpatient (CLI) | payer MEDICARE, BC, OTHER ==
--- NOTE | 2019-04-01 10:31 | REP ---
Right lower extremity Duplex Doppler venous ultrasound: Real time compression and duplex Doppler interrogation of the right lower extremity deep venous system is performed. The right common femoral, superficial femoral and popliteal veins are fully compressible with transducer pressure and demonstrate normal spontaneous and phasic flow, without evidence of deep venous thrombosis. Impression: No evidence of deep venous thrombosis of the right lower extremity femoral popliteal venous system. In the popliteal fossa there is again noted a complex fluid collection measuring 4.1 x 0.7 x 3.6 cm. Electronically Signed by Clarke Farfan MD 04/01/2019 10:23 A
== END ==
LOC: M RAD 09:49
PROVIDERS: ATTEND Physician Assistant Surgical
DX: M79.604 Pain in right leg (principal); M25.461 Effusion, right knee

== ENCOUNTER → 2019-07-12 | Outpatient (CLI) | payer MEDICARE, BC, OTHER ==
[~2019-07-12] MED LIST changes: -OMEP-172 PO; +OMEP1CAP73 PO
[2019-07-12 10:29] LABS: BLOOD UREA NITROGEN 21 MG/DL (7-18); CREATININE FOR GFR 0.76 MG/DL (0.55-1.30); GLOMERULAR FILTRATION RATE > 60.0 (>39)
== END ==
LOC: M LAB 09:18
PROVIDERS: ATTEND Physician Assistant Surgical
DX: Z00.00 Encounter for general adult medical examination without abnormal findings (principal); M54.5 Low back pain

== ENCOUNTER → 2020-09-14 | Outpatient (CLI) | payer MEDICARE, BC, OTHER ==
[~2020-09-14] MED LIST changes: +HYDR-3490 PO; -HYDR25TAB PO; -NABU-126 PO; +NABU-71 PO
--- NOTE | 2020-09-14 11:16 | REP ---
INDICATION: PRESENCE OF RIGHT ARTIFICIAL KNEE JOINT, RO FX. COMPARISON: Radiographs 03/03/2019. TECHNIQUE: Axial CT right knee performed with sagittal and coronal reconstruction images. FINDINGS: Total knee prosthesis is in place, in good position. There is no abnormal adjacent lucency at the interface with bone. No fracture or dislocation is seen. Sclerotic lesion in the central distal femur probably represents a bone infarct or enchondroma. There are a few tendinous calcifications at the medial margin of the patellofemoral joint, the largest measures 8 mm in diameter. IMPRESSION: No acute fracture or dislocation. No definite signs of prosthetic loosening. <Electronically signed by Clarke Farfan > 09/14/20 [id number]
== END ==
LOC: M RAD 10:18
PROVIDERS: ATTEND Physician Assistant Surgical
DX: Z96.651 Presence of right artificial knee joint (principal)

== ENCOUNTER → 2021-04-23 | Outpatient (CLI) | payer MEDICARE, BC, OTHER ==
[~2021-04-23] MED LIST changes: +OMEP-173 PO; -OMEP-218 PO; +POTA-149 PO; -POTA10TA16 PO
[2021-04-23 13:19] LABS: BLOOD UREA NITROGEN 21 MG/DL (7-18); CREATININE FOR GFR 0.78 MG/DL (0.55-1.30); GLOMERULAR FILTRATION RATE > 60.0 (>39)
== END ==
LOC: M LAB 12:32
PROVIDERS: ATTEND Orthopaedic Surgery
DX: R22.42 Localized swelling, mass and lump, left lower limb (principal)

== ENCOUNTER → 2021-05-14 | Outpatient (CLI) | payer MEDICARE, BC, OTHER ==
[~2021-05-14] MED LIST changes: +PROHANCE 279.3MG/ML 15ML VIAL ONE; +PROHANCE 279.3MG/ML 5ML VIAL ONE
== END ==
LOC: M PLAIMG 11:53
PROVIDERS: ATTEND Orthopaedic Surgery
DX: R60.0 Localized edema (principal); I83.92 Asymptomatic varicose veins of left lower extremity
CPT/HCPCS: 73720; A9576

== ENCOUNTER → 2021-11-29 | Outpatient (CLI) | payer MEDICARE, BC, OTHER ==
[~2021-11-29] MED LIST changes: -PROHANCE 279.3MG/ML 15ML VIAL ONE; -PROHANCE 279.3MG/ML 5ML VIAL ONE
[2021-11-29 12:27] LABS: BLOOD UREA NITROGEN 19 MG/DL (7-18); GLOMERULAR FILTRATION RATE > 60.0 (>32)
== END ==
LOC: M LAB 10:39
PROVIDERS: ATTEND Orthopaedic Surgery
DX: M51.36 Other intervertebral disc degeneration, lumbar region (principal)

== ENCOUNTER → 2021-12-17 | Outpatient (CLI) | payer MEDICARE, BC, OTHER ==
[~2021-12-17] MED LIST changes: +PROHANCE 279.3MG/ML 15ML VIAL ONE; +PROHANCE 279.3MG/ML 5ML VIAL ONE
== END ==
LOC: M PLAIMG 13:46
PROVIDERS: ATTEND Orthopaedic Surgery
DX: M51.36 Other intervertebral disc degeneration, lumbar region (principal); M51.26 Other intervertebral disc displacement, lumbar region; N28.1 Cyst of kidney, acquired
CPT/HCPCS: 72158; A9576

== ENCOUNTER → 2022-01-14 | Outpatient (CLI) | payer MEDICARE, BC, OTHER ==
[~2022-01-14] MED LIST changes: -PROHANCE 279.3MG/ML 15ML VIAL ONE; -PROHANCE 279.3MG/ML 5ML VIAL ONE
== END ==
LOC: M WHC 13:03
PROVIDERS: ATTEND Orthopaedic Surgery
DX: M43.12 Spondylolisthesis, cervical region (principal); M85.88 Other specified disorders of bone density and structure, other site

== ENCOUNTER → 2022-06-11 | Outpatient (REF) | payer MEDICARE, BC, OTHER | LOC: M SMT 16:41 | PROVIDERS: ATTEND Physician Assistant | DX: N39.46 Mixed incontinence (principal) ==

== ENCOUNTER → 2022-07-02 | Outpatient (CLI) | payer MEDICARE, BC, OTHER | LOC: M WHC 10:25 | PROVIDERS: ATTEND Internal Medicine | DX: D48.60 Neoplasm of uncertain behavior of unspecified breast (principal); N63.12 Unspecified lump in the right breast, upper inner quadrant; N32.81 Overactive bladder; N39.41 Urge incontinence | CPT/HCPCS: 64566; 76642; 77066; G0279 ==

== ENCOUNTER → 2022-07-09 | Outpatient (REF) | payer MEDICARE, BC, OTHER ==
[2022-07-09 13:24] LABS: APPEARANCE, URINE HAZY (CLEAR); BACTERIA, URINE AUTO 2+ (NEGATIVE); BILIRUBIN, URINE AUTO NEGATIVE (NEGATIVE); BLOOD, URINE BLOOD NEGATIVE (NEGATIVE); COLOR, URINE YELLOW (YELLOW); GLUCOSE, URINE (UA) AUTO NEGATIVE (NEGATIVE); KETONE, URINE AUTO NEGATIVE (NEGATIVE); LEUKOCYTE ESTERASE, URINE AUTO TRACE (NEGATIVE); MUCUS, URINE SMALL (NEGATIVE); NITRITE, URINE AUTO NEGATIVE (NEGATIVE); PROTEIN, URINE AUTO NEGATIVE (NEGATIVE); RBC, URINE AUTO 1 /HPF (0-3); SPECIFIC GRAVITY URINE AUTO 1.023 (1.002-1.035); SQUAMOUS EPITHELIAL CELL UR AU 7 /HPF (0-6); UROBILINOGEN, URINE AUTO 0.2 mg/dL (0.0-2.0); WBC, URINE AUTO 7 /HPF (0-3)
== END ==
LOC: M SMT 12:55
PROVIDERS: ATTEND Physician Assistant
DX: N39.41 Urge incontinence (principal)

== ENCOUNTER → 2022-08-12 | Outpatient (CLI) | payer MEDICARE, BC, OTHER | LOC: M PLAIMG 13:15 | PROVIDERS: ATTEND Orthopaedic Surgery | DX: M47.896 Other spondylosis, lumbar region (principal); Z98.1 Arthrodesis status; M51.26 Other intervertebral disc displacement, lumbar region; M51.36 Other intervertebral disc degeneration, lumbar region ==

== ENCOUNTER → 2022-08-28 | Outpatient (CLI) | payer MEDICARE, BC, OTHER ==
[~2022-08-28] MED LIST changes: +PROHANCE 279.3MG/ML 15ML VIAL As Ordered ONE; +PROHANCE 279.3MG/ML 5ML VIAL As Ordered ONE
[2022-08-28 12:26] LABS: BLOOD UREA NITROGEN 19 MG/DL (9-23); CREATININE FOR GFR 0.68 MG/DL (0.55-1.30); GLOMERULAR FILTRATION RATE > 60.0 (>32)
== END ==
LOC: M RAD 10:56
PROVIDERS: ATTEND Orthopaedic Surgery
DX: M43.16 Spondylolisthesis, lumbar region (principal); M51.26 Other intervertebral disc displacement, lumbar region; Z98.1 Arthrodesis status; M48.061 Spinal stenosis, lumbar region without neurogenic claudication; M47.896 Other spondylosis, lumbar region
CPT/HCPCS: 36415; 72158; 82565; 84520; A9576

== ENCOUNTER → 2024-01-27 | Outpatient (REF) | payer MEDICARE, BC, OTHER ==
[~2024-01-27] MED LIST changes: +GABA-1490 PO; -GABA600T4 PO; -K-TA10TA2 PO; +POTA-165 PO; -PROHANCE 279.3MG/ML 15ML VIAL As Ordered ONE; -PROHANCE 279.3MG/ML 5ML VIAL As Ordered ONE
[2024-01-27 13:45] LABS: APPEARANCE, URINE HAZY (CLEAR); BACTERIA, URINE AUTO NEGATIVE (NEGATIVE); BILIRUBIN, URINE AUTO NEGATIVE (NEGATIVE); BLOOD, URINE BLOOD NEGATIVE (NEGATIVE); COLOR, URINE YELLOW (YELLOW); GLUCOSE, URINE (UA) AUTO NEGATIVE (NEGATIVE); KETONE, URINE AUTO TRACE mg/dL (NEGATIVE); LEUKOCYTE ESTERASE, URINE AUTO 1+ (NEGATIVE); MUCUS, URINE SMALL (NEGATIVE); NITRITE, URINE AUTO NEGATIVE (NEGATIVE); PROTEIN, URINE AUTO NEGATIVE (NEGATIVE); RBC, URINE AUTO 0 /HPF (0-3); SPECIFIC GRAVITY URINE AUTO 1.025 (1.002-1.035); SQUAMOUS EPITHELIAL CELL UR AU 3 /HPF (0-6); UROBILINOGEN, URINE AUTO 0.2 mg/dL (0.0-2.0); WBC, URINE AUTO 1 /HPF (0-3)
== END ==
LOC: M SMT 12:35
PROVIDERS: ATTEND Physician Assistant
DX: N39.41 Urge incontinence (principal)

== ENCOUNTER → 2024-02-03 | Outpatient (REF) | payer MEDICARE, BC, OTHER ==
[2024-02-03 13:47] LABS: APPEARANCE, URINE HAZY (CLEAR); BACTERIA, URINE AUTO NEGATIVE (NEGATIVE); BILIRUBIN, URINE AUTO NEGATIVE (NEGATIVE); BLOOD, URINE BLOOD NEGATIVE (NEGATIVE); COLOR, URINE YELLOW (YELLOW); GLUCOSE, URINE (UA) AUTO NEGATIVE (NEGATIVE); KETONE, URINE AUTO NEGATIVE (NEGATIVE); LEUKOCYTE ESTERASE, URINE AUTO TRACE (NEGATIVE); MUCUS, URINE SMALL (NEGATIVE); NITRITE, URINE AUTO NEGATIVE (NEGATIVE); PROTEIN, URINE AUTO NEGATIVE (NEGATIVE); RBC, URINE AUTO 0 /HPF (0-3); SPECIFIC GRAVITY URINE AUTO 1.019 (1.002-1.035); SQUAMOUS EPITHELIAL CELL UR AU 4 /HPF (0-6); UROBILINOGEN, URINE AUTO 0.2 mg/dL (0.0-2.0); WBC, URINE AUTO 2 /HPF (0-3)
== END ==
LOC: M SMT 12:54
PROVIDERS: ATTEND Physician Assistant
DX: N39.41 Urge incontinence (principal)

== ENCOUNTER → 2024-02-05 | Outpatient (REF) | payer MEDICARE, OTHER | LOC: M SMT 16:45 | PROVIDERS: ATTEND Physician Assistant | DX: R35.0 Frequency of micturition (principal) ==

== ENCOUNTER 2024-03-13 13:19 | Observation (INO) | payer MEDICARE, BC ==
[~2024-03-13] VITALS: Ht 170.2 cm; Wt 81.8 kg
[2024-03-13 07:47] VITALS: BP 148/73; TEMP 97; O2SAT 94
[2024-03-13] MEDS ORDERED: MELO15TA28 PO (14:00)
[2024-03-13] MEDS ORDERED: MYRB50TA PO (14:00)
[2024-03-13] MEDS ORDERED: CALC-212 PO (14:00)
[2024-03-13] MEDS: fentaNYL 100 MCG/2 ML INJECTION IV ONE (14:05)
[2024-03-13] MEDS: MORPHINE 2 MG/ML 1ML VIAL IV ONE (15:41)
[2024-03-13] MEDS: ONDANSETRON 4MG 2ML VIAL IV ONE (15:41)
[2024-03-13] MEDS: MORPHINE 4 MG/ML 1ML VIAL IV ONE ×2 (16:03→16:42)
[2024-03-13 16:40] LABS: HEMATOCRIT 45.1 % (36.0-47.0); HEMOGLOBIN 15.1 g/dl (12.0-15.5); MEAN CORPUSCULAR HGB CONC 33.5 g/dl (32.0-36.5); MEAN CORPUSCULAR VOLUME 95.6 fl (80.0-96.0); PLATELET COUNT, AUTOMATED 180 10^3/uL (150-450); RED BLOOD COUNT 4.72 10^6/uL (4.00-5.40)
[2024-03-13] MEDS: METOCLOPRAMIDE INJ 10MG/2ML VIAL IV ONE (16:42)
[2024-03-13 16:47] LABS: BLOOD UREA NITROGEN 33 MG/DL (9-23); CARBON DIOXIDE LEVEL 28 MMOL/L (20-31); CHLORIDE LEVEL 106 MMOL/L (98-107); CREATININE FOR GFR 0.67 MG/DL (0.55-1.30); GLOMERULAR FILTRATION RATE > 60.0 (>32); GLUCOSE, FASTING 138 MG/DL (74-106); POTASSIUM SERUM 3.8 MMOL/L (3.5-5.1); SODIUM LEVEL 141 MMOL/L (136-145)
[2024-03-13] MEDS ORDERED: ACETAMINOPHEN 325 MG TAB PO PRN (17:10)
[2024-03-13 17:36] LABS: INR 0.93; PROTHROMBIN TIME 12.8 SECONDS (12.5-14.5)
[2024-03-13] MEDS ORDERED: PERCOCET 5MG/325MG TAB PO PRN (17:50)
[2024-03-13] MEDS ORDERED: ONDANSETRON 4MG ORAL DISINTEGRATING TAB SL PRN (17:50)
[2024-03-13] MEDS ORDERED: ALBUTEROL SULFATE 2.5MG/0.5ML INH NEB SOLN NEB PRN (17:50)
[2024-03-13] MEDS ORDERED: PERCOCET PO (18:44)
[2024-03-13] MEDS ORDERED: MELO7.5T35 PO (18:44)
[2024-03-13] MEDS ORDERED: HOME MED LIST COMPLETE! XX SCH (18:45)
[2024-03-13] MEDS: PERCOCET 5MG/325MG TAB PO PRN (20:01)
[2024-03-13 21:59] VITALS: O2SAT 82
[2024-03-13 22:00] VITALS: O2SAT 92
[2024-03-14 04:00] VITALS: BP 149/73; TEMP 97.8; O2SAT 99
[2024-03-14 05:55] LABS: HEMATOCRIT 39.8 % (36.0-47.0); HEMOGLOBIN 13.4 g/dl (12.0-15.5); MEAN CORPUSCULAR HGB CONC 33.7 g/dl (32.0-36.5); PLATELET COUNT, AUTOMATED 168 10^3/uL (150-450); RED BLOOD COUNT 4.19 10^6/uL (4.00-5.40); WHITE BLOOD COUNT 6.5 10^3/uL (4.0-10.0)
[2024-03-14 06:23] LABS: ALBUMIN 3.8 G/DL (3.2-5.2); ALKALINE PHOSPHATASE 68 U/L (35-104); ALT/SGPT 14 U/L (7.0-40); AST/SGOT 11 U/L (<34); BILIRUBIN,TOTAL 0.6 MG/DL (0.3-1.2); BLOOD UREA NITROGEN 26 MG/DL (9-23); CALCIUM LEVEL 9.6 MG/DL (8.3-10.6); CARBON DIOXIDE LEVEL 30 MMOL/L (20-31); CHLORIDE LEVEL 106 MMOL/L (98-107); CREATININE FOR GFR 0.59 MG/DL (0.55-1.30); GLOMERULAR FILTRATION RATE > 60.0 (>32); GLUCOSE, FASTING 97 MG/DL (74-106); POTASSIUM SERUM 3.8 MMOL/L (3.5-5.1); SODIUM LEVEL 142 MMOL/L (136-145); TOTAL PROTEIN 6.7 G/DL (5.7-8.2)
[2024-03-14 07:08] VITALS: O2SAT 95
[2024-03-14] MEDS: OMEPRAZOLE 20MG CAP PO SCH (07:58)
[2024-03-14 08:01] VITALS: O2SAT 83
[2024-03-14 08:13] VITALS: O2SAT 93
[2024-03-14] MEDS ORDERED: APAP325T4 PO (11:23)
[2024-03-14 12:00] VITALS: BP 144/70; TEMP 97.2; O2SAT 91
== END 2024-03-14 12:22 | disposition home or self-care (01) ==
LOC: M ED 13:19 → M ED INP 17:07 → M MSPAV 19:46
PROVIDERS: ADMIT Internal Medicine; ATTEND Internal Medicine
DX: S00.03XA Contusion of scalp, initial encounter (principal); W10.8XXA Fall (on) (from) other stairs and steps, initial encounter; Y92.22 Religious institution as the place of occurrence of the external cause; Y93.9 Activity, unspecified; Y99.9 Unspecified external cause status; R55 Syncope and collapse; J96.01 Acute respiratory failure with hypoxia; R53.1 Weakness; M17.12 Unilateral primary osteoarthritis, left knee; R32 Unspecified urinary incontinence; E78.5 Hyperlipidemia, unspecified; H53.2 Diplopia; I10 Essential (primary) hypertension; I50.30 Unspecified diastolic (congestive) heart failure; G62.9 Polyneuropathy, unspecified; Z79.899 Other long term (current) drug therapy; F41.9 Anxiety disorder, unspecified; M48.061 Spinal stenosis, lumbar region without neurogenic claudication
CPT/HCPCS: 36415; 70450; 71250; 72125; 80048; 80053; 85027; 85610; 86850; 86900; 86901; 93005; 96374; 96375; 96376; 97161; 97530; 99285; G0378; J2405; J2765; J3010

== ENCOUNTER → 2024-05-05 | Outpatient (REF) | payer MEDICARE, BC ==
[~2024-05-05] MED LIST changes: +APAP325T4 PO; +CALC-212 PO; +MELO15TA28 PO; +MELO7.5T35 PO; +MYRB50TA PO; +PERCOCET PO
[2024-05-05 13:59] LABS: APPEARANCE, URINE HAZY (CLEAR); BACTERIA, URINE AUTO NEGATIVE (NEGATIVE); BILIRUBIN, URINE AUTO NEGATIVE (NEGATIVE); BLOOD, URINE BLOOD NEGATIVE (NEGATIVE); COLOR, URINE YELLOW (YELLOW); GLUCOSE, URINE (UA) AUTO NEGATIVE (NEGATIVE); KETONE, URINE AUTO NEGATIVE (NEGATIVE); LEUKOCYTE ESTERASE, URINE AUTO NEGATIVE (NEGATIVE); MUCUS, URINE SMALL (NEGATIVE); NITRITE, URINE AUTO NEGATIVE (NEGATIVE); PROTEIN, URINE AUTO NEGATIVE (NEGATIVE); RBC, URINE AUTO 1 /HPF (0-3); SPECIFIC GRAVITY URINE AUTO 1.026 (1.002-1.035); SQUAMOUS EPITHELIAL CELL UR AU 2 /HPF (0-6); WBC, URINE AUTO 1 /HPF (0-3)
== END ==
LOC: M SMT 12:55
PROVIDERS: ATTEND Physician Assistant
DX: N39.41 Urge incontinence (principal)

== ENCOUNTER → 2024-08-06 | Outpatient (CLI) | payer MEDICARE, BC ==
[2024-08-06 10:10] LABS: HEMATOCRIT 42.1 % (36.0-47.0); HEMOGLOBIN 13.9 g/dl (12.0-15.5); MEAN CORPUSCULAR HEMOGLOBIN 31.6 pg (27.0-33.0); MEAN CORPUSCULAR VOLUME 95.7 fl (80.0-96.0); PLATELET COUNT, AUTOMATED 196 10^3/uL (150-450); WHITE BLOOD COUNT 8.4 10^3/uL (4.0-10.0)
[2024-08-06 10:17] LABS: ERYTHROCYTE SEDIMENTATION RATE 5 mm/hr (0-30)
[2024-08-06 10:23] LABS: INR 0.95
[2024-08-06 10:32] LABS: BILIRUBIN,TOTAL 0.5 MG/DL (0.3-1.2); CALCIUM LEVEL 9.4 MG/DL (8.3-10.6); CREATININE FOR GFR 0.67 MG/DL (0.55-1.30); GLOMERULAR FILTRATION RATE 86.7 (>32); TOTAL PROTEIN 6.7 G/DL (5.7-8.2)
== END ==
LOC: M RAD 08:17
PROVIDERS: ATTEND Orthopaedic Surgery
DX: Z01.812 Encounter for preprocedural laboratory examination (principal); M17.12 Unilateral primary osteoarthritis, left knee; I45.10 Unspecified right bundle-branch block; R00.1 Bradycardia, unspecified

== ENCOUNTER → 2024-09-06 | Outpatient (CLI) | payer MEDICARE, BC ==
[~2024-09-06] MED LIST changes: +CYCL5TAB4 PO; +DULO1CAP5 PO; +OXYB10TA23 PO; +OXYC1TAB23 PO; +POTA-150 PO
[2024-09-06 12:01] LABS: HEMATOCRIT 42.7 % (36.0-47.0); HEMOGLOBIN 14.4 g/dl (12.0-15.5); MEAN CORPUSCULAR HEMOGLOBIN 31.9 pg (27.0-33.0); MEAN CORPUSCULAR HGB CONC 33.7 g/dl (32.0-36.5); MEAN CORPUSCULAR VOLUME 94.5 fl (80.0-96.0); PLATELET COUNT, AUTOMATED 230 10^3/uL (150-450); RED BLOOD COUNT 4.52 10^6/uL (4.00-5.40); WHITE BLOOD COUNT 8.3 10^3/uL (4.0-10.0)
[2024-09-06 12:08] LABS: APPEARANCE, URINE HAZY (CLEAR); BACTERIA, URINE AUTO 1+ (NEGATIVE); BILIRUBIN, URINE AUTO NEGATIVE (NEGATIVE); BLOOD, URINE BLOOD 3+ (NEGATIVE); COLOR, URINE AMBER (YELLOW); GLUCOSE, URINE (UA) AUTO NEGATIVE (NEGATIVE); KETONE, URINE AUTO NEGATIVE (NEGATIVE); LEUKOCYTE ESTERASE, URINE AUTO TRACE (NEGATIVE); MUCUS, URINE MODERATE (NEGATIVE); NITRITE, URINE AUTO NEGATIVE (NEGATIVE); PROTEIN, URINE AUTO 3+ mg/dL (NEGATIVE); RBC, URINE AUTO TNTC /HPF (0-3); SPECIFIC GRAVITY URINE AUTO 1.024 (1.002-1.035); SQUAMOUS EPITHELIAL CELL UR AU 1 /HPF (0-6); WBC, URINE AUTO 20 /HPF (0-3)
[2024-09-06 12:29] LABS: ALBUMIN 3.7 G/DL (3.2-5.2); BILIRUBIN,TOTAL 0.8 MG/DL (0.3-1.2); CALCIUM LEVEL 9.6 MG/DL (8.3-10.6); CREATININE FOR GFR 0.76 MG/DL (0.55-1.30); GLOMERULAR FILTRATION RATE 77.7 (>32); POTASSIUM SERUM 3.6 MMOL/L (3.5-5.1); TOTAL PROTEIN 6.5 G/DL (5.7-8.2)
== END ==
LOC: M LAB 11:22
PROVIDERS: ATTEND Urology
DX: N39.41 Urge incontinence (principal)

== ENCOUNTER → 2024-09-15 | Outpatient (CLI) | payer MEDICARE, BC | LOC: M RAD 15:00 | PROVIDERS: ATTEND Orthopaedic Surgery | DX: R22.42 Localized swelling, mass and lump, left lower limb (principal); M79.662 Pain in left lower leg ==

== ENCOUNTER → 2025-03-30 | Outpatient (CLI) | payer MEDICARE, BC ==
[~2025-03-30] MED LIST changes: -AMIT150T PO; +AMIT150T4 PO; +CEPH500C PO; -IBUP-1022 PO; +IBUP600T42 PO
== END ==
LOC: M RAD 11:41
PROVIDERS: ATTEND Physician Assistant
DX: Z96.82 Presence of neurostimulator (principal)